=== PATIENT | female | born 1970 | race Caucasian/White ===

== ENCOUNTER 2021-07-03 10:45 | Emergency (ER) | payer OTHER, SELFPAY ==
[2021-07-03 10:46] VITALS: BP 129/78; PULSE 85; RESP 16; TEMP 37.4; O2SAT 90; BMI 29.7
--- NOTE | 2021-07-03 10:52 | NURSING ---
NO OLD EKGS
--- NOTE | 2021-07-03 11:34 | EKG12_ITS ---
Test Reason : Blood Pressure : / mmHG Vent. Rate : 080 BPM Atrial Rate : 080 BPM P-R Int : 148 ms QRS Dur : 084 ms QT Int : 364 ms P-R-T Axes : 052 001 030 degrees QTc Int : 419 ms Normal sinus rhythm Low voltage QRS (Limb Leads) Septal NC, age undetermined, cannot be excluded Confirmed by SPENCER YUN, JEROME ([id number]), supervising editor news reel KYLE MAKI ([id number]) on 07/06/2021 10:42:18 AM Referred By: FRANK Confirmed By:JEROME PALMER MD
--- NOTE | 2021-07-03 11:34 | RAD_ITS ---
INDICATION: chest pain EXAMINATION/TECHNIQUE: X-RAY - XR Chest 1 View COMPARISON: None. FINDINGS: LINES/DEVICES: External lines overlie the patient. LUNGS: Patchy airspace disease is noted in the bilateral lungs, most notable at the left lung base. Costophrenic angles appear mildly blunted. Questionable small pleural effusion on the left. No discrete pneumothorax. MEDIASTINUM AND CARDIOVASCULAR STRUCTURES: Cardiac silhouette is not enlarged. There is prominence of the pulmonary vasculature. Airway is midline. BONES AND SOFT TISSUES: Degenerative changes are noted in the osseous structures without acute fracture seen. RAD/Chest 1 View (Portable) IMPRESSION: 1. Multiple patchy airspace opacities in the bilateral lungs, most notable at the left lung base. There is also questionable small left pleural effusion. These findings are nonspecific and may represent pneumonia in the proper clinical setting. 2. Prominence of the pulmonary vasculature. This could represent pulmonary edema. Recommendations: It is recommended that follow-up radiograph of the chest are performed 6-8 weeks after treatment to document resolution. Electronically Signed: Omid Lugo MD at 16:09 EST Tel , Service support ,
[2021-07-03 11:58] VITALS: O2SAT 92
[2021-07-03 12:04] VITALS: BP 135/72; PULSE 94; RESP 18; TEMP 37.4; O2SAT 95
[2021-07-03 12:06] VITALS: O2SAT 94
[2021-07-03 12:21] LABS: Absolute Lymphocyte Count 0.82 X10^3/uL (0.83-4.51); Absolute Neutrophil Count 3.6 X10^3/uL (2.0-7.7); Basophil# 0.01 X10^3/uL; Basophil% 0.2 % (0-1); Hematocrit 40.2 % (37-47); Hemoglobin 13.3 g/dL (12.0-15.0); Lymphocyte # 0.82 X10^3/ul (0.83-4.51); Lymphocyte % 18.1 % (19-41); Mean Corp Hgb Conc 33.1 g/dL (32-36); Mean Corpuscular Hgb 28.6 pg (27.0-32.0); Mean Corpuscular Volume 86.5 fL (81-99); Mean Platelet Vol. 10.1 fl (6.2-12.0); Monocyte% 2.2 % (0-10); NRBC Flagged by Analyzer 0 % (0-5); Neutrophil # 3.58 X10^3/uL (2.7-7.7); Neutrophil % 79.3 % (47-70); POSITIVE MORPHOLOGY YES; Platelet Count 208 K/mm3 (150-450); RBC Distribution Width CV 12.7 % (11.6-14.6); RBC Distribution Width SD 40.4 fl (35.1-43.9); Red Blood Count 4.65 M/mm3 (4.2-5.4); White Blood Count 4.5 K/mm3 (4.4-11.0)
[2021-07-03 12:24] LABS: Differential Indicated SCAN CRITERIA MET
[2021-07-03 12:37] LABS: AST(SGOT) 45 U/L (15-37); Alanine Aminotransfer ALT/SGPT 40 U/L (13-56); Albumin, Serum 3.5 g/dL (3.2-5.0); Alkaline Phosphatase 64 U/L (45-117); Anion Gap 9 (5-15); BUN 10 mg/dL (7-18); BUN/Creat Ratio 11.5 RATIO (10-20); Bilirubin, Direct 0.13 mg/dL (0.00-0.30); Calcium,Total 8.3 mg/dL (8.5-10.1); Chloride 101 mmol/L (98-107); Creatinine, Serum 0.87 mg/dL (0.55-1.02); EST Glomerular Filtration Rate 73 mL/min (>60); Est Glom Filt Rate - Afr Amer 88 mL/min (>60); Estimated Creatinine Clearance 74.39 ml/min; Globulin 4.4 g/dL (2.2-4.2); Glucose 103 mg/dL (74-106); Potassium 3.9 mmol/L (3.5-5.1); Protein, Total 7.9 g/dL (6.4-8.2); Sodium Level 137 mmol/L (136-145); Troponin-I HS 8 pg/mL (3.0-54.0)
[2021-07-03] MEDS: Ondansetron 4 MG/2 ML Vial IV (12:55)
[2021-07-03 12:56] LABS: Differential Comment SCANNED
--- NOTE | 2021-07-03 14:15 | EDS_ITS ---
HPI HPI - URI History of Present Illness Chief Complaint: Shortness of Breath Narrative Narrative: 50-year-old female presenting with weakness, body aches, chills. She does have COVID-19. She had at home test at home. She has been sick for about 7 days. Patient denies any chest pain. She denies vomiting but admits to nausea. She states she is already had her primary care set her up for the monoclonal antibodies on Sunday. Impression: 1. COVID-19 pneumonitis ROS ROS ED Constitutional Constitutional ED: Reports chills and fever(s) Eyes Eyes: Denies blurry vision or diplopia ENT ENT ED: Denies rhinorrhea or sore throat Cardiovascular Cardiovascular: Denies chest pain or palpitations Respiratory/Chest Respiratory/Chest: Reports cough and dyspnea Gastrointestinal Gastrointestinal: Denies abdominal pain, nausea or vomiting Genitourinary Genitourinary ED: Denies dysuria or hematuria Musculoskeletal Musculoskeletal: Reports myalgias; Denies arthralgias Integumentary Denies Abrasions or rash Neurologic Neurologic: Reports headache(s); Denies paresthesias or weakness PFSH PFSH Medical History Arrhythmia Dermoid tumor Home Medications Aspir-81 81 mg PO/SL DAILY 07/03/21 [History Last Taken Unknown] metoprolol succinate 12.5 mg PO DAILY 07/03/21 [History Last Taken Unknown] Allergy/AdvReac Type Severity Reaction Status Date / Time amoxicillin [From Augmentin] Allergy Rash Verified 07/03/21 10:49 clavulanic acid Allergy Rash Verified 07/03/21 10:49 [From Augmentin] Surgical History Previous back surgery Status post patent foramen ovale closure Social History Smoking Status: Never smoker EXAM Physical Exam Const Vital Signs: 07/03/21 10:46 07/03/21 11:58 07/03/21 12:04 Temperature 99.3 F H 99.4 F H Temperature Source Temporal Temporal Pulse Rate 85 94 Respiratory Rate 16 18 Respiratory Effort Normal Respiratory Depth Normal Respiratory Pattern Normal Blood Pressure 129/78 H 135/72 H Blood Pressure Mean 95 93 Pulse Ox 90 95 Oxygen Delivery Method Room Air Room Air Room Air 07/03/21 12:06 Temperature Temperature Source Pulse Rate Respiratory Rate Respiratory Effort Respiratory Depth Respiratory Pattern Blood Pressure Blood Pressure Mean Pulse Ox 94 Oxygen Delivery Method Room Air Positive well nourished General Appearance ED: NAD HEENT normocephalic and atraumatic Neck supple and no meningeal signs Resp normal respiratory effort and clear to auscultation bilaterally Cardio Rate: regular rate Rhythm: regular rhythm Extremity normal to inspection General Extremety ED: Negative for cyanosis General Extremity: Negative for cyanosis Neuro oriented x3 and CN's II-XII intact bilaterally Sensorium / Orientation: alert Psych mental status grossly normal MDM MDM MDM Narrative Medical decision making narrative: EKG was performed and is sinus rhythm at 80 bpm without sign of ischemic change. Chest x-ray on my interpretation shows bilateral pulmonary infiltrates. CBC is unremarkable except for lymphopenia. CMP is normal with exception of an elevated AST at 45. High-sensitivity troponin is 8 and the patient is denying any chest pain. Patient has maintained O2 sats at 94% throughout her stay in the ER. I feel comfortable at this point discharging home to follow-up for the monoclonal antibodies. Patient is given return precautions. Lab Data Attestation: I reviewed the patient's lab results. Labs: Laboratory Results - last 24 hr 07/03/21 07/03/21 12:10 12:10 WBC 4.5 RBC 4.65 Hgb 13.3 Hct 40.2 MCV 86.5 MCH 28.6 MCHC 33.1 RDW Std Deviation 40.4 RDW Coeff of Thania 12.7 Plt Count 208 MPV 10.1 Immature Gran % (Auto) 0.200 Neut % (Auto) 79.3 H Lymph % (Auto) 18.1 L [place] % (Auto) 2.2 Eos % (Auto) 0.0 Baso % (Auto) 0.2 Absolute Neuts (auto) 3.6 Absolute Lymphs (auto) 0.82 L Nucleated RBC % 0 Differential Comment SCANNED Sodium 137 Potassium 3.9 Chloride 101 Carbon Dioxide 27.0 Anion Gap 9 BUN 10 Creatinine 0.87 Estim Creat Clear Calc 74.39 Est GFR (MDRD) Af Amer 88 Est GFR (MDRD) Non-Af 73 BUN/Creatinine Ratio 11.5 Glucose 103 Calcium 8.3 L Total Bilirubin 0.40 Direct Bilirubin 0.13 AST 45 H ALT 40 Alkaline Phosphatase 64 Troponin I High Sens 8 Total Protein 7.9 Albumin 3.5 Globulin 4.4 H Discharge Plan Triage Chief Complaint: Shortness of Breath ED Provider: Aba Hdez Dx/Rx/DC Orders Instructions: Coronavirus Disease 2019 (COVID-19): Caring for Yourself or Others Prescriptions: No Action Aspir-81 81 mg PO/SL DAILY RF: 0 metoprolol succinate 25 mg tablet extended release 24 hr 12.5 mg PO DAILY RF: 0 Other Ambulatory Orders: COVID Outpatient Monoclonal Antibody Referral (Routine) Timeframe: 1 Day Facility: [facility] - Location: [facility] Ordered By: Dr. Aba Hdez Primary Care Provider: Mitch Cabral Referrals: Mitch Cabral, [Primary Care Provider] - Disposition Disposition: Home, Self Care
[2021-07-03 14:37] VITALS: BP 136/86; PULSE 78; RESP 16; O2SAT 93
== END 2021-07-03 14:41 | disposition home or self-care (01) ==
PROVIDERS: Emergency Provider Student in an Organized Health Care Education/Training Program; PCP Family Medicine
DX: U07.1 COVID-19 (principal); J12.82 Pneumonia due to coronavirus disease 2019; J81.1 Chronic pulmonary edema; Z79.899 Other long term (current) drug therapy; Z87.74 Personal history of (corrected) congenital malformations of heart and circulatory system
CPT/HCPCS: 71045; 80048; 80076; 84484; 85025; 87635; 93005; 96374; 99284; U0005; J2405; U0003

== ENCOUNTER 2021-07-05 14:05 | Inpatient (IN) | payer OTHER, SELFPAY ==
[2021-07-05] VITALS (14 sets, daily range): BP systolic 113–136; BP diastolic 58–84; PULSE 84–113; RESP 18–24; TEMP 37.2–38.3; O2SAT 79–95; BMI 29.7; BMI 30.1
--- NOTE | 2021-07-05 14:08 | RAD_ITS ---
STUDY: X-RAY CHEST REASON FOR EXAM: Female, 50 years old. SOB TECHNIQUE: Single AP portable view of the chest. COMPARISON: Comparison is made with prior study dated 07/03/2021. FINDINGS: Since prior study, there has been a progression in the bilateral pulmonary infiltrates. There is no demonstrated pleural abnormality. Normal size heart. Normal mediastinum and frederick. Normal visualized pulmonary arteries. Normal visualized aortic arch and descending thoracic aorta. Normal visualized thoracic spine. Normal visualized ribs, clavicles, and shoulders. There is no demonstrated abnormality of the visualized soft tissue structures of the upper abdomen. RAD/Chest 1 View (Portable) IMPRESSION: Progressive bilateral pulmonary infiltrates in the preferential peripheral distribution. Pneumonitis associated with Covid should be ruled out. Electronically Signed: Frederick Campos MD at 15:22 EST , Service support ,
--- NOTE | 2021-07-05 18:07 | EKG12_ITS ---
Test Reason : DYSRHYTHMIA Blood Pressure : / mmHG Vent. Rate : 089 BPM Atrial Rate : 089 BPM P-R Int : 146 ms QRS Dur : 088 ms QT Int : 342 ms P-R-T Axes : 055 -07 043 degrees QTc Int : 416 ms Normal sinus rhythm Normal ECG Confirmed by ART MARTINEZ MD ([id number]), fashion editor SUNI CHA ([id number]) on 07/06/2021 1:11:41 PM Also confirmed by ART MARTINEZ MD ([id number]), fashion editor KYLE MAKI ([id number]) on 07/06/2021 1:24:04 PM Referred By: FRANKY KEENE Confirmed By:ART MARTINEZ MD
--- NOTE | 2021-07-05 18:10 | EDS_ITS ---
HPI History of Present Illness Chief Complaint: Shortness of Breath Informant: patient Narrative Narrative: Presents for increasing dyspnea and hypoxia today after returning from monoclonal antibody treatment up at [facility]. 8 days into symptoms. Reports fevers myalgias cough, diarrhea at least twice a day. Nonbloody. Loss of taste and smell. Decreased appetite. Nonvaccinated. Unclear on any exposures. No infections in the past. No history of COPD or asthma. No tobacco history. Reports pulse ox has been 91-92% and was at that level when she received the treatment earlier today. States after returning home felt more fatigued and more short of breath home pulse ox was 84% therefore came for evaluation. Fevers of 10 2-1 03. Status post Motrin 1230 just less than 6 hours after my evaluation. She has been alternating this with Tylenol. Tolerating oral fluids. Noted some chest discomfort with tightness. Prior similar symptoms: No PFSH PFSH Medical History Arrhythmia Dermoid tumor Home Medications Aspir-81 81 mg PO/SL DAILY 07/03/21 [History Last Taken 07/04/21] metoprolol succinate 12.5 mg PO DAILY 07/03/21 [History Last Taken 07/05/21] Allergy/AdvReac Type Severity Reaction Status Date / Time amoxicillin [From Augmentin] Allergy Rash Verified 07/05/21 14:06 clavulanic acid Allergy Rash Verified 07/05/21 14:06 [From Augmentin] Surgical History Previous back surgery Status post patent foramen ovale closure Social History Smoking Status: Never smoker ROS ROS ED Constitutional Constitutional ED: Reports fever(s); Denies chills or sweats Eyes Eyes: Denies change in vision ENT ENT ED: Denies dysphagia or sore throat Cardiovascular Cardiovascular: Reports chest pain; Denies leg edema, palpitations or racing heartbeat Respiratory/Chest Respiratory/Chest: Reports cough, dyspnea and dyspnea on exertion Gastrointestinal Gastrointestinal: Reports diarrhea; Denies abdominal pain, nausea or vomiting Genitourinary Genitourinary ED: Denies dysuria, hematuria or urinary frequency Musculoskeletal Musculoskeletal: Denies back pain, extremity pain or neck pain Integumentary Denies rash or wounds Neurologic Neurologic: Denies headache(s), paresthesias or weakness EXAM Physical Exam Const Vital Signs: 07/05/21 14:06 07/05/21 14:10 07/05/21 17:08 Temperature 99.2 F H Temperature Source Temporal Pulse Rate 86 94 Respiratory Rate 18 Respiratory Effort Respiratory Pattern Blood Pressure 135/63 H 136/72 H Blood Pressure Mean 87 93 Pulse Ox 84 90 Oxygen Delivery Method Room Air Nasal Cannula Oxygen Flow Rate (L/min) 3 07/05/21 17:33 07/05/21 18:28 07/05/21 18:39 Temperature 100.9 F H Temperature Source Oral Pulse Rate 108 H 107 H Respiratory Rate 24 H 24 H Respiratory Effort Short of Breath Respiratory Pattern Tachypnea Tachypnea Blood Pressure 136/72 H Blood Pressure Mean 93 Pulse Ox 89 92 Oxygen Delivery Method Nasal Cannula Nasal Cannula Oxygen Flow Rate (L/min) 2 4 07/05/21 19:00 07/05/21 20:02 07/05/21 20:10 Temperature 100 F H 99.1 F Temperature Source Oral Temporal Pulse Rate 101 H 106 H 113 H Respiratory Rate 21 H 20 H 22 H Respiratory Effort Respiratory Pattern Blood Pressure 122/59 H 113/84 H Blood Pressure Mean 80 93 Pulse Ox 92 93 79 Oxygen Delivery Method Nasal Cannula Nasal Cannula Nasal Cannula Oxygen Flow Rate (L/min) 4 5 4 Positive well nourished and well developed Constitutional Narrative: Currently 4 L nasal cannula, no respiratory distress. General Appearance ED: well developed and NAD HEENT Reports dry mucous membranes normocephalic and atraumatic Mouth ED: Yes dry mucous membranes Mouth: dry mucous membranes Eyes PERRL, EOMs intact bilaterally and conjunctivae normal General Eye ED: Yes normal appearance of both eyes Neck no lymphadenopathy and supple General: Negative for tenderness Chest Wall Chest: Negative for tenderness Resp normal respiratory effort and normal air movement Effort and Inspection: symmetric chest movement; Negative for respiratory distress Cardio regular rate, regular rhythm and no murmurs Peripheral Pulses: pulses 2+ throughout GI normal to inspection, nondistended, normoactive bowel sounds and non-tender Palpation: Negative for guarding or rebound tenderness present Back/Spine no CVA tenderness and no thoracic nor lumbar tenderness Extremity normal to inspection General Extremety ED: Negative for edema or tenderness General Extremity: Negative for edema Neuro oriented x3 and no sensory deficits noted Sensorium / Orientation: awake and alert Skin no rashes or lesions noted and no wounds MDM MDM MDM Narrative Medical decision making narrative: Patient maintained on 4 L initially is 92% on room air. She did feel warm and temperature went up to 100 she was given Tylenol. Labs white count 9.9 with 12.6. Lymphopenia noted. Sodium 133 potassium 4.1 creatinine 0.92. Troponin normal. Chest x-ray consistent with bilateral pneumonia with her Covid diagnosis. 2000: Reevaluation during conversation pulse ox went down to 88% on her 4 L. I did not attempt to ambulate. She was turned up to 5 L nasal cannula. She reported increasing dyspnea prior to turn up her oxygen. With her hypoxemia I spoke with hospitalist Dr. Posey for admission for further management. Lab Data Attestation: I reviewed the patient's lab results. Labs: Laboratory Results - last 24 hr 07/05/21 07/05/21 18:37 18:37 WBC 9.9 RBC 4.42 Hgb 12.6 Hct 38.0 MCV 86.0 MCH 28.5 MCHC 33.2 RDW Std Deviation 40.9 RDW Coeff of Thania 13.0 Plt Count 334 MPV 9.8 Immature Gran % (Auto) 1.100 H Neut % (Auto) 88.9 H Lymph % (Auto) 8.2 L [place] % (Auto) 1.6 Eos % (Auto) 0.0 Baso % (Auto) 0.2 Absolute Neuts (auto) 8.8 H Absolute Lymphs (auto) 0.81 L Nucleated RBC % 0 Differential Comment SCANNED Sodium 133 L Potassium 4.1 Chloride 100 Carbon Dioxide 27.0 Anion Gap 6 BUN 13 Creatinine 0.92 Estim Creat Clear Calc 70.35 Est GFR (MDRD) Af Amer 83 Est GFR (MDRD) Non-Af 69 BUN/Creatinine Ratio 14.2 Glucose 94 Calcium 8.9 Magnesium 2.3 Total Bilirubin 0.60 AST 87 H ALT 46 Alkaline Phosphatase 61 Troponin I High Sens 6 Total Protein 7.9 Albumin 2.8 L Globulin 5.1 H Albumin/Globulin Ratio 0.5 L Radiography Chest X-Ray - ED: 1 View, Read by ED Physician and Read by Radiologist Diagnostic Testing: Bilateral pulmonary infiltrates. EKG Initial EKG: Attestation: I personally reviewed and interpreted this EKG as follows: Comments: Sinus rate of [address] changes. T wave flattening in leads III and aVF. Discharge Plan Dx/Rx/DC Orders Clinical Impression: Pneumonia due to 2019-nCoV, Hypoxemia, Acute hyponatremia Disposition Disposition: Acute Care Hospital [facility] Discharge Date/Time: 07/05/21 20:44
[2021-07-05] MEDS: Acetaminophen 500 MG Tablet 1000 MG PO (18:28)
[2021-07-05] MEDS: Albuterol 2.5 MG/3 ML VIAL.NEB. INHALATION (18:28)
[2021-07-05] MEDS: dexAMETHasone 4 MG Tablet 6 MG PO (18:28)
[2021-07-05 18:53] LABS: Absolute Lymphocyte Count 0.81 X10^3/uL (0.83-4.51); Absolute Neutrophil Count 8.8 X10^3/uL (2.0-7.7); Basophil# 0.02 X10^3/uL; Basophil% 0.2 % (0-1); Hemoglobin 12.6 g/dL (12.0-15.0); Lymphocyte # 0.81 X10^3/ul (0.83-4.51); Lymphocyte % 8.2 % (19-41); Mean Corp Hgb Conc 33.2 g/dL (32-36); Mean Corpuscular Hgb 28.5 pg (27.0-32.0); Mean Platelet Vol. 9.8 fl (6.2-12.0); Monocyte# 0.16 X10^3/uL; Monocyte% 1.6 % (0-10); NRBC Flagged by Analyzer 0 % (0-5); Neutrophil # 8.83 X10^3/uL (2.7-7.7); Neutrophil % 88.9 % (47-70); POSITIVE MORPHOLOGY YES; Platelet Count 334 K/mm3 (150-450); RBC Distribution Width SD 40.9 fl (35.1-43.9); Red Blood Count 4.42 M/mm3 (4.2-5.4); White Blood Count 9.9 K/mm3 (4.4-11.0)
[2021-07-05 18:54] LABS: Differential Indicated SCAN CRITERIA MET
[2021-07-05 19:11] LABS: ALB/GLOB Ratio 0.5 RATIO (0.9-2.4); AST(SGOT) 87 U/L (15-37); Alanine Aminotransfer ALT/SGPT 46 U/L (13-56); Albumin, Serum 2.8 g/dL (3.2-5.0); Alkaline Phosphatase 61 U/L (45-117); Anion Gap 6 (5-15); BUN 13 mg/dL (7-18); BUN/Creat Ratio 14.2 RATIO (10-20); Calcium,Total 8.9 mg/dL (8.5-10.1); Chloride 100 mmol/L (98-107); Creatinine, Serum 0.92 mg/dL (0.55-1.02); EST Glomerular Filtration Rate 69 mL/min (>60); Est Glom Filt Rate - Afr Amer 83 mL/min (>60); Estimated Creatinine Clearance 70.35 ml/min; Globulin 5.1 g/dL (2.2-4.2); Glucose 94 mg/dL (74-106); Magnesium 2.3 mg/dL (1.6-2.6); Potassium 4.1 mmol/L (3.5-5.1); Protein, Total 7.9 g/dL (6.4-8.2); Sodium Level 133 mmol/L (136-145); Troponin-I HS 6 pg/mL (3.0-54.0)
[2021-07-05 19:48] LABS: Differential Comment SCANNED
--- NOTE | 2021-07-05 21:20 | PCM.HP.STD ---
HPI - General General Date of Admission: 07/05/21 Date of Service: 07/05/21 Chief Complaint: Shortness of breath, COVID-19 infection HPI Narrative MARY GILLESPIE, is a 50 F who presents to the emergency room at [facility] for evaluation of increasing shortness of breath, she was diagnosed with Covid 19 infection which was diagnosed 8 days ago, she received monoclonal antibodies today but became short of breath and had increased fatigue when she returned home. She noted her pulse ox at home to be 84% on room air. Labs obtained on the patient showed a normal white blood cell count, CMP was unremarkable except for an AST of 87. Chest x-ray showed bilateral pulmonary infiltrates. Patient required 4 L of oxygen to maintain her pulse ox at 92%. Patient will be admitted to [place] [id number] for COVID-19 pneumonia, she was placed on IV Decadron and will receive remdesivir. I explained to her that if her respiratory status worsened markedly she would be a candidate to receive baricitinib. FORMERLY [facility], [facility] Medical History Arrhythmia Dermoid tumor Home Medications Aspir-81 81 mg PO/SL DAILY 07/03/21 [History Last Taken 07/04/21] metoprolol succinate 12.5 mg PO DAILY 07/03/21 [History Last Taken 07/05/21] Allergy/AdvReac Type Severity Reaction Status Date / Time amoxicillin [From Augmentin] Allergy Rash Verified 07/05/21 14:06 clavulanic acid Allergy Rash Verified 07/05/21 14:06 [From Augmentin] Surgical History Previous back surgery Status post patent foramen ovale closure Social History Smoking Status: Never smoker ROS Constitutional Constitutional: Reports chills, fatigue, fever(s), malaise and weakness; Denies anorexia, change in weight or night sweats Eyes Eyes: Denies blurry vision, change in vision, discharge from eye(s) or eye pain Cardiovascular Cardiovascular: Denies chest pain, claudication, edema or palpitations Respiratory/Chest Respiratory/Chest: Reports cough, shortness of breath at rest and shortness of breath with exertion; Denies hemoptysis Gastrointestinal Gastrointestinal: Denies abdominal pain, constipation, diarrhea, hematemesis, hematochezia, melena, nausea or vomiting Genitourinary Genitourinary: Denies dysuria, hematuria, urinary frequency, urinary hesitancy, urinary incontinence or urinary urgency Musculoskeletal Musculoskeletal: Denies back pain, joint pain, joint stiffness, joint swelling, myalgias or neck pain Neurologic Neurologic: Denies abnormal gait, abnormal speech, dizziness, focal weakness, headache(s), loss of vision, numbness, other visual disturbances, paresthesias, syncope or tingling Psychiatric Psychiatric: Denies anxiety, cognitive impairment, depression, irritability, mood swings or suicidal ideation Endocrine Endocrinology: Denies change in body appearance, cold intolerance, excessive sweating, heat intolerance, polydipsia or polyuria Hematologic/Lymphatic Hematologic/Lymphatic: Denies none, anemia, easy bleeding, easy bruising or lymphadenopathy Allergic/Immunologic Allergic/Immunologic: Denies rhinitis, urticaria, eczemia or asthma Vital Signs Vital Signs Vital Signs: 07/05/21 14:06 07/05/21 14:10 07/05/21 17:08 Temperature 99.2 F H Temperature Source Temporal Pulse Rate 86 94 Respiratory Rate 18 Respiratory Effort Respiratory Pattern Blood Pressure 135/63 H 136/72 H Blood Pressure Mean 87 93 Pulse Ox 84 90 Oxygen Delivery Method Room Air Nasal Cannula Oxygen Flow Rate (L/min) 3 07/05/21 17:33 07/05/21 18:28 07/05/21 18:39 Temperature 100.9 F H Temperature Source Oral Pulse Rate 108 H 107 H Respiratory Rate 24 H 24 H Respiratory Effort Short of Breath Respiratory Pattern Tachypnea Tachypnea Blood Pressure 136/72 H Blood Pressure Mean 93 Pulse Ox 89 92 Oxygen Delivery Method Nasal Cannula Nasal Cannula Oxygen Flow Rate (L/min) 2 4 07/05/21 19:00 07/05/21 20:02 07/05/21 20:10 Temperature 100 F H 99.1 F Temperature Source Oral Temporal Pulse Rate 101 H 106 H 113 H Respiratory Rate 21 H 20 H 22 H Respiratory Effort Respiratory Pattern Blood Pressure 122/59 H 113/84 H Blood Pressure Mean 80 93 Pulse Ox 92 93 79 Oxygen Delivery Method Nasal Cannula Nasal Cannula Nasal Cannula Oxygen Flow Rate (L/min) 4 5 4 Weight Weight: 87.3 kg Body Mass Index (BMI) 30.1 Physical Exam Const alert, oriented x3, no apparent distress, healthy appearing and well nourished General Appearance: cooperative, well kempt and well developed Orientation / Consciousness: awake, oriented to person, oriented to place and oriented to time HEENT normocephalic, head/scalp atraumatic, hearing grossly normal bilaterally and moist oral mucous membranes Eyes PERRL, EOMs intact bilaterally and conjunctivae normal Neck nuchal rigidity, supple, no JVD, thyroid normal and no carotid bruits General: trachea midline Resp normal respiratory effort, no retractions, no use of accessory muscles and clear to auscultation bilaterally Auscultation: Negative for rales, rhonchi or wheezes Cardio regular rate, regular rhythm, S1 normal heart sound, S2 normal heart sound, no murmurs, no rub and no gallops GI normal to inspection, nondistended, normoactive bowel sounds, soft to palpation, non-tender and non-distended Extremity normal to inspection and no clubbing, cyanosis or edema Skin no rashes or lesions noted General Skin Exam: no breakdown Neuro oriented x3, CN's II-XII intact bilaterally, no focal motor deficits and no sensory deficits noted Sensorium / Orientation: awake and alert Speech: speech normal Psych thought process normal and affect normal Results Lab / Micro Data Result Diagrams: 07/05/21 18:37 07/05/21 18:37 Labs: Laboratory Results - last 24 hr 07/05/21 18:37: WBC 9.9, RBC 4.42, Hgb 12.6, Hct 38.0, MCV 86.0, MCH 28.5, MCHC 33.2, RDW Std Deviation 40.9, RDW Coeff of Thania 13.0, Plt Count 334, MPV 9.8, Immature Gran % (Auto) 1.100 H, Neut % (Auto) 88.9 H, Lymph % (Auto) 8.2 L, [place] % (Auto) 1.6, Eos % (Auto) 0.0, Baso % (Auto) 0.2, Absolute Neuts (auto) 8.8 H, Absolute Lymphs (auto) 0.81 L, Nucleated RBC % 0, Differential Comment SCANNED 07/05/21 18:37: Sodium 133 L, Potassium 4.1, Chloride 100, Carbon Dioxide 27.0, Anion Gap 6, BUN 13, Creatinine 0.92, Estim Creat Clear Calc 70.35, Est GFR (MDRD) Af Amer 83, Est GFR (MDRD) Non-Af 69, BUN/Creatinine Ratio 14.2, Glucose 94, Calcium 8.9, Magnesium 2.3, Total Bilirubin 0.60, AST 87 H, ALT 46, Alkaline Phosphatase 61, Troponin I High Sens 6, Total Protein 7.9, Albumin 2.8 L, Globulin 5.1 H, Albumin/Globulin Ratio 0.5 L Assessment & Plan Assessment/Plan (1) Pneumonia due to 2019-nCoV: PLAN: 1. COVID-19 pneumonia-patient will be admitted to [facility], she will receive IV Decadron and IV remdesivir, if respiratory status worsens, she may need to be seen by infectious diseases for institution of baricitinib treatment. Patient understands this. #2 acute hypoxic respiratory failure secondary to COVID-19 pneumonia-pulse ox will be monitored Charges/Coding Visit Charges Inpatient E&M: 22070 Init Hosp L3
[2021-07-05] MEDS: Enoxaparin 40 MG/0.4 ML Syringe SC (22:00)
--- NOTE | 2021-07-05 23:06 | PCS.PANDOC ---
PANDEMIC DOCUMENTATION INITIATED: Date: 03/07/2021 Time: 1900 Emergency documentation initiated 07/05/21 @ 2049
[2021-07-06] VITALS (10 sets, daily range): BP systolic 100–118; BP diastolic 59–68; PULSE 75–90; RESP 16–18; TEMP 36.7–38.1; O2SAT 89–96
[2021-07-06 07:19] LABS: Absolute Lymphocyte Count 0.84 X10^3/uL (0.83-4.51); Absolute Neutrophil Count 9.5 X10^3/uL (2.0-7.7); Basophil# 0.01 X10^3/uL; Basophil% 0.1 % (0-1); Hematocrit 35.1 % (37-47); Lymphocyte # 0.84 X10^3/ul (0.83-4.51); Lymphocyte % 7.9 % (19-41); Mean Corp Hgb Conc 34.2 g/dL (32-36); Mean Corpuscular Hgb 29.5 pg (27.0-32.0); Mean Corpuscular Volume 86.2 fL (81-99); Mean Platelet Vol. 9.9 fl (6.2-12.0); Monocyte# 0.18 X10^3/uL; Monocyte% 1.7 % (0-10); NRBC Flagged by Analyzer 0 % (0-5); Neutrophil # 9.47 X10^3/uL (2.7-7.7); Neutrophil % 89.5 % (47-70); POSITIVE MORPHOLOGY YES; Platelet Count 351 K/mm3 (150-450); RBC Distribution Width CV 13.2 % (11.6-14.6); Red Blood Count 4.07 M/mm3 (4.2-5.4); White Blood Count 10.6 K/mm3 (4.4-11.0)
[2021-07-06 07:25] LABS: Differential Indicated SCAN CRITERIA MET
--- NOTE | 2021-07-06 07:27 | PCM.PN.HOSP ---
Subjective Subjective Patient is a 50-year-old lady unvaccinated against COVID-19 pneumonia presented with progressive shortness of breath Objective Data Objective Data Vital Signs: Vital Signs Temp Pulse Resp BP Pulse Ox 98.1 F 84 18 111/60 94 07/06/21 05:00 07/06/21 05:00 07/06/21 05:00 07/06/21 05:00 07/06/21 05:00 Oxygen Flow Rate (L/min) 15 Oxygen Delivery Method High Flow Weight: 87.3 kg Body Mass Index (BMI) 30.1 Intake & Output: Intake and Output for Last 24 Hours 07/04/21 07/05/21 07/06/21 23:59 23:59 23:59 Intake Total 500 / 500 650 / 650 Balance 500 / 500 650 / 650 Lab / Micro Data Result Diagrams: 07/06/21 06:20 07/06/21 06:20 Labs: Laboratory Results - last 24 hr 07/05/21 18:37: WBC 9.9, RBC 4.42, Hgb 12.6, Hct 38.0, MCV 86.0, MCH 28.5, MCHC 33.2, RDW Std Deviation 40.9, RDW Coeff of Thania 13.0, Plt Count 334, MPV 9.8, Immature Gran % (Auto) 1.100 H, Neut % (Auto) 88.9 H, Lymph % (Auto) 8.2 L, Stark % (Auto) 1.6, Eos % (Auto) 0.0, Baso % (Auto) 0.2, Absolute Neuts (auto) 8.8 H, Absolute Lymphs (auto) 0.81 L, Nucleated RBC % 0, Differential Comment SCANNED 07/05/21 18:37: Sodium 133 L, Potassium 4.1, Chloride 100, Carbon Dioxide 27.0, Anion Gap 6, BUN 13, Creatinine 0.92, Estim Creat Clear Calc 70.35, Est GFR (MDRD) Af Amer 83, Est GFR (MDRD) Non-Af 69, BUN/Creatinine Ratio 14.2, Glucose 94, Calcium 8.9, Magnesium 2.3, Total Bilirubin 0.60, AST 87 H, ALT 46, Alkaline Phosphatase 61, Troponin I High Sens 6, Total Protein 7.9, Albumin 2.8 L, Globulin 5.1 H, Albumin/Globulin Ratio 0.5 L 07/06/21 06:20: WBC 10.6, RBC 4.07 L, Hgb 12.0, Hct 35.1 L, MCV 86.2, MCH 29.5, MCHC 34.2, RDW Std Deviation 42.0, RDW Coeff of Thania 13.2, Plt Count 351, MPV 9.9, Immature Gran % (Auto) 0.800, Neut % (Auto) 89.5 H, Lymph % (Auto) 7.9 L, Stark % (Auto) 1.7, Eos % (Auto) 0.0, Baso % (Auto) 0.1, Absolute Neuts (auto) 9.5 H, Absolute Lymphs (auto) 0.84, Nucleated RBC % 0 Radiography Diagnostic Testing: Radiology Impression Chest X-Ray 07/05/21 14:08 IMPRESSION: Progressive bilateral pulmonary infiltrates in the preferential peripheral distribution. Pneumonitis associated with Covid should be ruled out. Electronically Signed: Frederick Campos MD at 15:22 EST , Service support , Physical Exam Narrative GENERAL: Dyspneic at rest HEENT: Atraumatic; EYES; Anicteric, Normal Conjunctiva NECK; supple, normal thyroid, RESPIRATORY: Diminished to auscultation CARDIOVASCULAR: Regular S1 S2, GI: soft, normoactive bowel sounds, : No Renal angle tenderness; EXTREMITIES: No edema, no clubbing, MUSCULOSKELETAL: no muscle waisting NEURO: Awake; no lateralizing signs. SKIN: No Rash PSYCH; Flat affect Assessment & Plan Assessment/Plan (1) Pneumonia due to 2019-nCoV: PLAN: Patient is a 50-year-old lady unvaccinated against COVID-19 pneumonia presented with progressive shortness of breath 1. Acute hypoxic respiratory failure ?Secondary to COVID-19 pneumonia patient on supplemental oxygen 2. COVID-19 pneumonia ?Patient was started on Decadron and remdesivir in addition to supplemental oxygen as discussed above. In view of patient worsening respiratory status consult was placed to pulmonary medicine as well as infectious disease for consideration for initiation of baricitinib 3. Arrhythmia?? SVT As patient is on beta-blockers 4. DVT prophylaxis ?On Lovenox 1. COVID-19 pneumonia-patient will be admitted to [facility] [place], she will receive IV Decadron and IV remdesivir, if respiratory status worsens, she may need to be seen by infectious diseases for institution of baricitinib treatment. Patient understands this. #2 acute hypoxic respiratory failure secondary to COVID-19 pneumonia-pulse ox will be monitored Charges/Coding Visit Charges Inpatient E&M: 17902 Subs Hosp L3
[2021-07-06 07:49] LABS: ALB/GLOB Ratio 0.5 RATIO (0.9-2.4); AST(SGOT) 78 U/L (15-37); Alanine Aminotransfer ALT/SGPT 51 U/L (13-56); Albumin, Serum 2.4 g/dL (3.2-5.0); Alkaline Phosphatase 68 U/L (45-117); Anion Gap 10 (5-15); BUN 11 mg/dL (7-18); BUN/Creat Ratio 15.4 RATIO (10-20); Calcium,Total 8.7 mg/dL (8.5-10.1); Chloride 105 mmol/L (98-107); Creatinine, Serum 0.72 mg/dL (0.55-1.02); EST Glomerular Filtration Rate 91 mL/min (>60); Est Glom Filt Rate - Afr Amer 110 mL/min (>60); Estimated Creatinine Clearance 89.89 ml/min; Globulin 4.6 g/dL (2.2-4.2); Glucose 128 mg/dL (74-106); Sodium Level 140 mmol/L (136-145)
[2021-07-06 08:15] LABS: Reactive Lymphocyte RARE
--- NOTE | 2021-07-06 09:27 | PCS.PANDOC ---
PANDEMIC DOCUMENTATION INITIATED: Date: 03/07/2021 Time: 190
[2021-07-06] MEDS: Enoxaparin 40 MG/0.4 ML Syringe SC (09:42)
[2021-07-06] MEDS: dexAMETHasone 4 MG Tablet 6 MG PO (09:42)
[2021-07-06] MEDS: Aspirin 81 MG TAB.CHEW PO (09:43)
[2021-07-06] MEDS: Metoprolol(XL)Succ 25 MG Tablet 12.5 MG PO (09:43)
[2021-07-06] MEDS: Acetaminophen 325 MG Tablet 650 MG PO ×3 (09:50→23:01)
[2021-07-06 10:28] LABS: Procalcitonin 0.14 ng/mL (0.00-0.09)
[2021-07-06 10:33] LABS: CPK Total, Creatine Kinase 212 U/L (26-192); LDH 832 U/L (84-246)
[2021-07-06 10:52] LABS: Lactic Acid 1.4 mmol/L (0.4-1.9)
[2021-07-06 10:53] LABS: Fibrinogen 873 mg/dl (203-444)
--- NOTE | 2021-07-06 11:00 | CASEMGMT ---
JACOBY GLASS Assessment: Face to Face with pt for initial transition planning/care coordination assessment. JACOBY GLASS introduced self and role at [facility], pt voices understanding and consents to assessment. Pt is A/O x4 and answers all questions appropriately at this time. Pt sitting up in chair with O2 on in no distress. Care providers, pharmacy, and demographics verified/updated. Admitting Dx: COVID 19 PNA PCP:Misha Specialists: Pt sees cardiology from [facility] Preferred Pharmacy: [facility] Retail Insurance: MMO Prescription Benefit: yes LW/HPOA: Pt states she has a LW/DPOA and her DPOA is her Shaan Garcia. She is aware that this is not on file at [facility] and she may bring in to be scanned into the chart. LNOK: Shaan Garcia, Living Arrangements: Pt lives with in a two story house with 3 steps to enter with a rail. Pt reports she is I in ADL's and denies concerns at home. Transportation: Pt drives self and denies concerns with transportation. DME/HHC/SNF: Pt denies having any DME in the home, prior HHC or SNF stays. Pt states her does not have COVID. She was first tested at home, then at [facility]. Pt states she can quarantine from her by using separate bedrooms and bathroom and has already been doing so. Pt has family who can provide her with groceries and supplies. Discussed local in network DME companies should pt need home O2 at dc. Pt does not have preference on company used. Pt states no concerns with going home at time of dc. Pt states no further concerns/needs. CM to follow. Advised pt to ask CM if any further question/concerns/needs arise, voices understanding. Pt Goal: Home Plan: Home, follow for home O2.
[2021-07-06 11:02] LABS: D-Dimer Quantitative (DVT/PE) 3.21 FEU/ug/m (0.27-0.49)
--- NOTE | 2021-07-06 11:08 | CT_ITS ---
STUDY: CTA CHEST REASON FOR EXAM: Female, 50 years old. Cough and shortness of breath. Covid positive. RADIATION DOSAGE (If Supplied By Facility): CTDIvol = ( 11.35 ) mGy, DLP = ( 488.53 ) mGycm TECHNIQUE: The examination was performed with the intravenous administration of IV 100mL Isovue-300. Post-processing of the angiographic images was performed, with multiplanar reformation and 3D reconstruction. Individualized dose optimization techniques were used for this CT. COMPARISON: None. FINDINGS: Normal enhancement of the main pulmonary artery and right and left pulmonary arteries. Normal enhancement of the bilateral peripheral pulmonary arteries. There is no demonstrated pulmonary embolism. Normal thoracic aorta and visualized great vessels. There is no demonstrated aortic dissection. Normal heart and pericardium. Normal mediastinum. Normal hilar regions. Normal visualized trachea and bronchi. The lungs are well expanded. Diffuse bilateral pulmonary infiltrates involving both upper and lower lobes and both lungs. There is a preferential peripheral distribution suggestive of pneumonitis associated with Covid. Normal pleura. Normal chest wall structures. Normal osseous structures. Normal visualized upper abdomen. CT/CTA Chest W/WO Contrast IMPRESSION: Diffuse bilateral pulmonary infiltrates as described. Pneumonitis associated with Covid should be ruled out. Electronically Signed: Frederick Campos MD at 12:11 EST , Service support ,
--- NOTE | 2021-07-06 12:09 | EX.PCM.CONCC ---
Assessment & Plan Assessment/Plan (1) Hypoxemia: (2) Pneumonia due to 2019-nCoV: PLAN: RECOMMENDATIONS: 1. Continue remdesivir and Decadron as ordered. 2. Continue prophylactic Lovenox. 3. Wean supplemental oxygen to maintain saturations at or above 90%. 4. Awake prone positioning was encouraged. 5. Diuretics can utilized as needed to maintain euvolemic state. IMPRESSIONS: 1. Acute hypoxemic respiratory failure secondary to COVID-19 pneumonia The patient presented to the hospital with worsening dyspnea and hypoxemia after having received an outpatient monoclonal antibody infusion on July 05. She is currently maintaining appropriate oxygen saturations on high flow nasal cannula. The patient has already been started on remdesivir, prophylactic Lovenox and Decadron. CTA chest was negative for PE. Continue supplemental oxygen to maintain saturations at or above 90%. Encourage incentive spirometer use and mobilize patient as tolerated. Awake prone positioning was encouraged. This note was generated with [employer] dictation software. It may contain incorrect words, spelling, and punctuation that were not noted in checking the note before signing. HPI Consult Data Date of Consult: 07/06/21 HPI Narrative Reason for Consultation: Acute hypoxemic respiratory failure secondary to COVID-19 pneumonia HPI Narrative: The patient is a 50-year-old female, with a history as outlined below, who presented to the emergency department on July 05 with worsening shortness of breath, cough, myalgias and diarrhea. The patient is unvaccinated against coronavirus. She did receive a monoclonal antibody infusion yesterday morning and was apparently maintaining appropriate oxygen saturations on room air at that time. By the time the evening hours came around, the patient was hypoxemic. Previously, the patient had been evaluated in the emergency department on July 03 with shortness of breath and subsequently tested positive for COVID-19. On presentation to the emergency department, the patient was initially noted to have a low-grade fever but was otherwise hemodynamically stable, saturating 84% on room air. Laboratory evaluation revealed no evidence of a leukocytosis. D-dimer was elevated at 3.2. Liver and renal function were within normal limits. Coronavirus PCR was positive. CTA chest showed no evidence for PE. Diffuse bilateral groundglass infiltrates were noted. The patient was subsequently placed on remdesivir, prophylactic Lovenox and Decadron. She was admitted to the medical surgical floor for further management. [facility] Medical History Arrhythmia Dermoid tumor Home Medications Aspir-81 81 mg PO/SL DAILY 07/03/21 [History Last Taken 07/04/21] metoprolol succinate 12.5 mg PO DAILY 07/03/21 [History Last Taken 07/05/21] Allergy/AdvReac Type Severity Reaction Status Date / Time amoxicillin [From Augmentin] Allergy Rash Verified 07/05/21 14:06 clavulanic acid Allergy Rash Verified 07/05/21 14:06 [From Augmentin] Surgical History Previous back surgery Status post patent foramen ovale closure Social History Smoking Status: Never smoker ROS Constitutional Constitutional: Reports body ache(s), chills, fatigue and malaise Eyes Eyes: Denies blurry vision or change in vision ENT HEENT: Denies dizziness, dysphagia or epistaxis Cardiovascular Cardiovascular: Reports dyspnea; Denies chest pain or claudication Respiratory/Chest Respiratory/Chest: Reports cough and dyspnea Gastrointestinal Gastrointestinal: Reports diarrhea; Denies abdominal pain, nausea or vomiting Genitourinary Genitourinary: Denies difficulty urinating Musculoskeletal Musculoskeletal: Denies arthralgias, back pain or joint pain Integumentary Integumentary: Denies lesions, rash or skin ulcer Neurologic Neurologic: Denies abnormal gait or abnormal speech Psychiatric Psychiatric: Denies anxiety or depression Endocrine Endocrinology: Reports fatigue Hematologic/Lymphatic Hematologic/Lymphatic: Denies easy bleeding or easy bruising Physical Exam Const alert, oriented x3 and no apparent distress General Appearance: cooperative HEENT normocephalic, head/scalp atraumatic and moist oral mucous membranes Eyes PERRL, EOMs intact bilaterally and conjunctivae normal Neck supple General: trachea midline Chest inspection of chest normal Resp normal respiratory effort Auscultation: Negative for rales, rhonchi or wheezes Cardio regular rate and regular rhythm GI normal to inspection, nondistended, normoactive bowel sounds Extremity no clubbing, cyanosis or edema Skin no rashes or lesions noted Neuro CN's II-XII intact bilaterally, moves all extremities and no focal motor deficits Psych cooperative and affect normal Lab / Micro Data Result Diagrams: 07/06/21 06:20 07/06/21 06:20 Labs: Laboratory Results - last 24 hr 07/05/21 18:37: WBC 9.9, RBC 4.42, Hgb 12.6, Hct 38.0, MCV 86.0, MCH 28.5, MCHC 33.2, RDW Std Deviation 40.9, RDW Coeff of Thania 13.0, Plt Count 334, MPV 9.8, Immature Gran % (Auto) 1.100 H, Neut % (Auto) 88.9 H, Lymph % (Auto) 8.2 L, Worth % (Auto) 1.6, Eos % (Auto) 0.0, Baso % (Auto) 0.2, Absolute Neuts (auto) 8.8 H, Absolute Lymphs (auto) 0.81 L, Nucleated RBC % 0, Differential Comment SCANNED 07/05/21 18:37: Sodium 133 L, Potassium 4.1, Chloride 100, Carbon Dioxide 27.0, Anion Gap 6, BUN 13, Creatinine 0.92, Estim Creat Clear Calc 70.35, Est GFR (MDRD) Af Amer 83, Est GFR (MDRD) Non-Af 69, BUN/Creatinine Ratio 14.2, Glucose 94, Calcium 8.9, Magnesium 2.3, Total Bilirubin 0.60, AST 87 H, ALT 46, Alkaline Phosphatase 61, Troponin I High Sens 6, Total Protein 7.9, Albumin 2.8 L, Globulin 5.1 H, Albumin/Globulin Ratio 0.5 L 07/06/21 06:20: WBC 10.6, RBC 4.07 L, Hgb 12.0, Hct 35.1 L, MCV 86.2, MCH 29.5, MCHC 34.2, RDW Std Deviation 42.0, RDW Coeff of Thania 13.2, Plt Count 351, MPV 9.9, Immature Gran % (Auto) 0.800, Neut % (Auto) 89.5 H, Lymph % (Auto) 7.9 L, Worth % (Auto) 1.7, Eos % (Auto) 0.0, Baso % (Auto) 0.1, Absolute Neuts (auto) 9.5 H, Absolute Lymphs (auto) 0.84, Nucleated RBC % 0, Reactive Lymphocytes RARE 07/06/21 06:20: Sodium 140, Potassium 4.0, Chloride 105, Carbon Dioxide 25.0, Anion Gap 10, BUN 11, Creatinine 0.72, Estim Creat Clear Calc 89.89, Est GFR (MDRD) Af Amer 110, Est GFR (MDRD) Non-Af 91, BUN/Creatinine Ratio 15.4, Glucose 128 H, Calcium 8.7, Total Bilirubin 0.40, AST 78 H, ALT 51, Alkaline Phosphatase 68, Total Protein 7.0, Albumin 2.4 L, Globulin 4.6 H, Albumin/Globulin Ratio 0.5 L 07/06/21 06:20: Lactate Dehydrogenase 832 H, Total Creatine Kinase 212 H, C-React Prot Ext Range 297.00 H 07/06/21 06:20: Procalcitonin 0.14 H 07/06/21 10:12: Fibrinogen 873 H, D-Dimer Quant (PE/DVT) 3.21 H* 07/06/21 10:12: Lactic Acid 1.4 Radiology Impression Chest X-Ray 07/05/21 14:08 IMPRESSION: Progressive bilateral pulmonary infiltrates in the preferential peripheral distribution. Pneumonitis associated with Covid should be ruled out. Electronically Signed: Frederick Campos MD at 15:22 EST , Service support , Charges/Coding Visit Charges Inpatient E&M: 94281 Init Hosp L3
--- NOTE | 2021-07-06 15:14 | CON.PCM.ID_ITS ---
Assessment & Plan Assessment/Plan (1) Pneumonia due to 2019-nCoV: PLAN: Sx started 06/27, unvaccinated. Isolate until 07/17. Recommend vaccine once out of iso. On dex and remdesivir. CRP 300. With rapidly worsening o2, reviewed EUA and risks/benefits; we agree to start baricitinib. Will follow, thank you (2) Hypoxemia: HPI Consult Data Date of Consult: 07/06/21 HPI Narrative HPI Narrative: MARY GILLESPIE, is a 50 F who presented 07/05 after monoclonal Ab infusion. Sx started 06/27. Lives with who is vaccinated, asymptomatic. Pt developed headache, fever, chills, cough, sputum, nausea, diarrhea, aches, change in taste/smell. Now on dex, remdesivir but worsening O2. Feeling better. Full ROS performed and neg except as noted above. [facility] Medical History Arrhythmia Dermoid tumor Home Medications Aspir-81 81 mg PO/SL DAILY 07/03/21 [History Last Taken 07/04/21] metoprolol succinate 12.5 mg PO DAILY 07/03/21 [History Last Taken 07/05/21] Allergy/AdvReac Type Severity Reaction Status Date / Time amoxicillin [From Augmentin] Allergy Rash Verified 07/05/21 14:06 clavulanic acid Allergy Rash Verified 07/05/21 14:06 [From Augmentin] Surgical History Previous back surgery Status post patent foramen ovale closure Social History Smoking Status: Never smoker Physical Exam Const alert, oriented x3 and no apparent distress General Appearance: cooperative Exam Limitations: no limitations HEENT normocephalic and head/scalp atraumatic Eyes PERRL and EOMs intact bilaterally Neck supple and No nodes Resp Auscultation: diminished lung sounds Cardio regular rate and regular rhythm GI normal to inspection, nondistended, normoactive bowel sounds Extremity no clubbing, cyanosis or edema Skin no rashes or lesions noted Neuro CN's II-XII intact bilaterally Lab / Micro Data Result Diagrams: 07/06/21 06:20 07/06/21 06:20 Labs: Laboratory Results - last 24 hr 07/05/21 18:37: WBC 9.9, RBC 4.42, Hgb 12.6, Hct 38.0, MCV 86.0, MCH 28.5, MCHC 33.2, RDW Std Deviation 40.9, RDW Coeff of Thania 13.0, Plt Count 334, MPV 9.8, Immature Gran % (Auto) 1.100 H, Neut % (Auto) 88.9 H, Lymph % (Auto) 8.2 L, Hendricks % (Auto) 1.6, Eos % (Auto) 0.0, Baso % (Auto) 0.2, Absolute Neuts (auto) 8.8 H, Absolute Lymphs (auto) 0.81 L, Nucleated RBC % 0, Differential Comment SCANNED 07/05/21 18:37: Sodium 133 L, Potassium 4.1, Chloride 100, Carbon Dioxide 27.0, Anion Gap 6, BUN 13, Creatinine 0.92, Estim Creat Clear Calc 70.35, Est GFR (MDRD) Af Amer 83, Est GFR (MDRD) Non-Af 69, BUN/Creatinine Ratio 14.2, Glucose 94, Calcium 8.9, Magnesium 2.3, Total Bilirubin 0.60, AST 87 H, ALT 46, Alkaline Phosphatase 61, Troponin I High Sens 6, Total Protein 7.9, Albumin 2.8 L, Globulin 5.1 H, Albumin/Globulin Ratio 0.5 L 07/06/21 06:20: WBC 10.6, RBC 4.07 L, Hgb 12.0, Hct 35.1 L, MCV 86.2, MCH 29.5, MCHC 34.2, RDW Std Deviation 42.0, RDW Coeff of Thania 13.2, Plt Count 351, MPV 9.9, Immature Gran % (Auto) 0.800, Neut % (Auto) 89.5 H, Lymph % (Auto) 7.9 L, Hendricks % (Auto) 1.7, Eos % (Auto) 0.0, Baso % (Auto) 0.1, Absolute Neuts (auto) 9.5 H, Absolute Lymphs (auto) 0.84, Nucleated RBC % 0, Reactive Lymphocytes RARE 07/06/21 06:20: Sodium 140, Potassium 4.0, Chloride 105, Carbon Dioxide 25.0, Anion Gap 10, BUN 11, Creatinine 0.72, Estim Creat Clear Calc 89.89, Est GFR (MDRD) Af Amer 110, Est GFR (MDRD) Non-Af 91, BUN/Creatinine Ratio 15.4, Glucose 128 H, Calcium 8.7, Total Bilirubin 0.40, AST 78 H, ALT 51, Alkaline Phosphatase 68, Total Protein 7.0, Albumin 2.4 L, Globulin 4.6 H, Albumin/Globulin Ratio 0.5 L 07/06/21 06:20: Lactate Dehydrogenase 832 H, Total Creatine Kinase 212 H, C- React Prot Ext Range 297.00 H 07/06/21 06:20: Procalcitonin 0.14 H 07/06/21 10:12: Fibrinogen 873 H, D-Dimer Quant (PE/DVT) 3.21 H* 07/06/21 10:12: Lactic Acid 1.4 Radiology Impression Chest X-Ray 07/05/21 14:08 IMPRESSION: Progressive bilateral pulmonary infiltrates in the preferential peripheral distribution. Pneumonitis associated with Covid should be ruled out. Electronically Signed: Frederick Campos MD at 15:22 EST , Service support , Chest CTA 07/06/21 11:08 IMPRESSION: Diffuse bilateral pulmonary infiltrates as described. Pneumonitis associated with Covid should be ruled out. Electronically Signed: Frederick Campos MD at 12:11 EST , Service support ,
[2021-07-06] MEDS: Sodium Chloride 0.65% 1 SPRAY SPRAY.BTL 2 SPRAY NASAL (21:37)
[2021-07-06] MEDS: 0.9% Saline Lock 10 ML Syringe IV (21:38)
[2021-07-07] VITALS (10 sets, daily range): BP systolic 113–122; BP diastolic 59–83; PULSE 61–89; RESP 18–20; TEMP 36.7–37.2; O2SAT 85–96
[2021-07-07] MEDS: Acetaminophen 325 MG Tablet 650 MG PO ×3 (05:24→21:17)
[2021-07-07 06:11] LABS: Absolute Lymphocyte Count 1.98 X10^3/uL (0.83-4.51); Absolute Neutrophil Count 7.8 X10^3/uL (2.0-7.7); Basophil# 0.03 X10^3/uL; Basophil% 0.3 % (0-1); Hematocrit 36.4 % (37-47); Lymphocyte # 1.98 X10^3/ul (0.83-4.51); Lymphocyte % 19.1 % (19-41); Mean Corpuscular Hgb 28.3 pg (27.0-32.0); Mean Corpuscular Volume 85.8 fL (81-99); Mean Platelet Vol. 9.9 fl (6.2-12.0); Monocyte# 0.47 X10^3/uL; Monocyte% 4.5 % (0-10); NRBC Flagged by Analyzer 0 % (0-5); Neutrophil # 7.77 X10^3/uL (2.7-7.7); Neutrophil % 75.2 % (47-70); POSITIVE MORPHOLOGY YES; Platelet Count 451 K/mm3 (150-450); RBC Distribution Width CV 13.2 % (11.6-14.6); RBC Distribution Width SD 41.1 fl (35.1-43.9); Red Blood Count 4.24 M/mm3 (4.2-5.4); White Blood Count 10.3 K/mm3 (4.4-11.0)
[2021-07-07 06:16] LABS: Differential Indicated SCAN CRITERIA MET
[2021-07-07 06:42] LABS: ALB/GLOB Ratio 0.5 RATIO (0.9-2.4); AST(SGOT) 64 U/L (15-37); Alanine Aminotransfer ALT/SGPT 58 U/L (13-56); Albumin, Serum 2.3 g/dL (3.2-5.0); Alkaline Phosphatase 67 U/L (45-117); Anion Gap 5 (5-15); Atypical Lymphocyte 1+ %; BUN 20 mg/dL (7-18); BUN/Creat Ratio 31.5 RATIO (10-20); Calcium,Total 8.5 mg/dL (8.5-10.1); Chloride 105 mmol/L (98-107); Creatinine, Serum 0.63 mg/dL (0.55-1.02); EST Glomerular Filtration Rate 105 mL/min (>60); Est Glom Filt Rate - Afr Amer 127 mL/min (>60); Estimated Creatinine Clearance 102.73 ml/min; Globulin 4.4 g/dL (2.2-4.2); Glucose 142 mg/dL (74-106); Protein, Total 6.7 g/dL (6.4-8.2); Sodium Level 139 mmol/L (136-145)
--- NOTE | 2021-07-07 07:44 | PN.HOSP_ITS ---
Subjective Subjective Patient seen with increasing oxygen requirement. Was also seen in consultation by IV and pulmonary. Patient was started on baricitinib. Objective Data Objective Data Vital Signs: Vital Signs Temp Pulse Resp BP Pulse Ox 98.1 F 76 18 113/59 L 95 07/07/21 05:18 07/07/21 05:18 07/07/21 05:18 07/07/21 05:18 07/07/21 05:18 Oxygen Flow Rate (L/min) 15 Oxygen Delivery Method High Flow Weight: 87.3 kg Body Mass Index (BMI) 30.1 Intake & Output: Intake and Output for Last 24 Hours 07/05/21 07/06/21 07/07/21 23:59 23:59 23:59 Intake Total 500 / 500 1200 / 1200 Balance 500 / 500 1200 / 1200 Lab / Micro Data Result Diagrams: 07/07/21 05:30 07/07/21 05:30 Labs: Laboratory Results - last 24 hr 07/06/21 06:20: Reactive Lymphocytes RARE 07/06/21 06:20: Sodium 140, Potassium 4.0, Chloride 105, Carbon Dioxide 25.0, Anion Gap 10, BUN 11, Creatinine 0.72, Estim Creat Clear Calc 89.89, Est GFR (MDRD) Af Amer 110, Est GFR (MDRD) Non-Af 91, BUN/Creatinine Ratio 15.4, Glucose 128 H, Calcium 8.7, Total Bilirubin 0.40, AST 78 H, ALT 51, Alkaline Phosphatase 68, Total Protein 7.0, Albumin 2.4 L, Globulin 4.6 H, Albumin/Globulin Ratio 0.5 L 07/06/21 06:20: Lactate Dehydrogenase 832 H, Total Creatine Kinase 212 H, C- React Prot Ext Range 297.00 H 07/06/21 06:20: Procalcitonin 0.14 H 07/06/21 10:12: Fibrinogen 873 H, D-Dimer Quant (PE/DVT) 3.21 H* 07/06/21 10:12: Lactic Acid 1.4 07/07/21 05:30: WBC 10.3, RBC 4.24, Hgb 12.0, Hct 36.4 L, MCV 85.8, MCH 28.3, MCHC 33.0, RDW Std Deviation 41.1, RDW Coeff of Thania 13.2, Plt Count 451 H, MPV 9.9, Immature Gran % (Auto) 0.900, Neut % (Auto) 75.2 H, Lymph % (Auto) 19.1, Yancey % (Auto) 4.5, Eos % (Auto) 0.0, Baso % (Auto) 0.3, Absolute Neuts (auto) 7.8 H, Absolute Lymphs (auto) 1.98, Nucleated RBC % 0, Atypical Lymphocytes 1+ 07/07/21 05:30: Sodium 139, Potassium 4.0, Chloride 105, Carbon Dioxide 29.0, Anion Gap 5, BUN 20 H, Creatinine 0.63, Estim Creat Clear Calc 102.73, Est GFR (MDRD) Af Amer 127, Est GFR (MDRD) Non-Af 105, BUN/Creatinine Ratio 31.5 H, Glucose 142 H, Calcium 8.5, Total Bilirubin 0.30, AST 64 H, ALT 58 H, Alkaline Phosphatase 67, Total Protein 6.7, Albumin 2.3 L, Globulin 4.4 H, Albumin/Globulin Ratio 0.5 L Radiography Diagnostic Testing: Radiology Impression Chest CTA 07/06/21 11:08 IMPRESSION: Diffuse bilateral pulmonary infiltrates as described. Pneumonitis associated with Covid should be ruled out. Electronically Signed: Frederick Campos MD at 12:11 EST , Service support , Physical Exam Narrative GENERAL: Dyspneic at rest HEENT: Atraumatic; EYES; Anicteric, Normal Conjunctiva NECK; supple, normal thyroid, RESPIRATORY: Diminished to auscultation CARDIOVASCULAR: Regular S1 S2, GI: soft, normoactive bowel sounds, : No Renal angle tenderness; EXTREMITIES: No edema, no clubbing, MUSCULOSKELETAL: no muscle waisting NEURO: Awake; no lateralizing signs. SKIN: No Rash PSYCH; Flat affect Assessment & Plan Assessment/Plan (1) Pneumonia due to 2019-nCoV: PLAN: Patient is a 50-year-old lady unvaccinated against COVID-19 pneumonia presented with progressive shortness of breath 1. Acute hypoxic respiratory failure ?Secondary to COVID-19 pneumonia patient on supplemental oxygen ?07/07/2021;Patient seen with increasing oxygen requirement. Was also seen in consultation by IV and pulmonary. Patient was started on baricitinib. 2. COVID-19 pneumonia ?Patient was started on Decadron and remdesivir in addition to supplemental oxygen as discussed above. In view of patient worsening respiratory status consult was placed to pulmonary medicine as well as infectious disease for consideration for initiation of baricitinib 3. Arrhythmia?? SVT As patient is on beta-blockers 4. DVT prophylaxis ?On Lovenox Charges/Coding Visit Charges Inpatient E&M: 81145 Subs Hosp L3
[2021-07-07] MEDS: Metoprolol(XL)Succ 25 MG Tablet 12.5 MG PO (11:03)
[2021-07-07] MEDS: Enoxaparin 40 MG/0.4 ML Syringe SC (11:03)
[2021-07-07] MEDS: dexAMETHasone 4 MG Tablet 6 MG PO (11:03)
[2021-07-07] MEDS: Aspirin 81 MG TAB.CHEW PO (11:04)
[2021-07-07] MEDS: guaiFENesin 1,200 MG Tablet 1200 MG PO ×2 (14:40→21:18)
[2021-07-07] MEDS: 0.9% Saline Lock 10 ML Syringe IV (21:24)
[2021-07-08] VITALS (14 sets, daily range): BP systolic 112–134; BP diastolic 64–93; PULSE 53–73; RESP 18–20; TEMP 36.3–37.4; O2SAT 84–97
[2021-07-08] MEDS: Temazepam 15 MG Capsule PO ×2 (00:38→23:54)
[2021-07-08 07:08] LABS: Absolute Lymphocyte Count 1.61 X10^3/uL (0.83-4.51); Absolute Neutrophil Count 8.9 X10^3/uL (2.0-7.7); Basophil# 0.02 X10^3/uL; Basophil% 0.2 % (0-1); Hematocrit 34.1 % (37-47); Hemoglobin 11.5 g/dL (12.0-15.0); Lymphocyte # 1.61 X10^3/ul (0.83-4.51); Lymphocyte % 14.6 % (19-41); Mean Corp Hgb Conc 33.7 g/dL (32-36); Mean Corpuscular Hgb 28.8 pg (27.0-32.0); Mean Corpuscular Volume 85.5 fL (81-99); Mean Platelet Vol. 9.7 fl (6.2-12.0); Monocyte# 0.44 X10^3/uL; NRBC Flagged by Analyzer 0 % (0-5); Neutrophil # 8.88 X10^3/uL (2.7-7.7); Neutrophil % 80.7 % (47-70); POSITIVE MORPHOLOGY YES; Platelet Count 451 K/mm3 (150-450); RBC Distribution Width CV 13.2 % (11.6-14.6); RBC Distribution Width SD 41.3 fl (35.1-43.9); Red Blood Count 3.99 M/mm3 (4.2-5.4)
[2021-07-08 07:12] LABS: Differential Indicated SCAN CRITERIA MET
[2021-07-08 07:38] LABS: ALB/GLOB Ratio 0.6 RATIO (0.9-2.4); AST(SGOT) 45 U/L (15-37); Alanine Aminotransfer ALT/SGPT 46 U/L (13-56); Albumin, Serum 2.2 g/dL (3.2-5.0); Alkaline Phosphatase 65 U/L (45-117); Anion Gap 3 (5-15); BUN 22 mg/dL (7-18); BUN/Creat Ratio 35.7 RATIO (10-20); Calcium,Total 8.6 mg/dL (8.5-10.1); Chloride 107 mmol/L (98-107); Creatinine, Serum 0.62 mg/dL (0.55-1.02); EST Glomerular Filtration Rate 108 mL/min (>60); Est Glom Filt Rate - Afr Amer 131 mL/min (>60); Estimated Creatinine Clearance 104.39 ml/min; Glucose 136 mg/dL (74-106); Potassium 4.4 mmol/L (3.5-5.1); Protein, Total 6.2 g/dL (6.4-8.2); Sodium Level 138 mmol/L (136-145)
[2021-07-08 07:40] LABS: Atypical Lymphocyte RARE %
--- NOTE | 2021-07-08 07:45 | PN.HOSP_ITS ---
Subjective Subjective Patient seen still requiring high flow oxygen currently on 40 L/min flow with oxygen saturation in the low 90s Objective Data Objective Data Vital Signs: Vital Signs Temp Pulse Resp BP Pulse Ox 97.3 F L 59 L 18 112/64 94 07/08/21 03:40 07/08/21 03:40 07/08/21 03:40 07/08/21 03:40 07/08/21 03:40 Oxygen Flow Rate (L/min) 14 Oxygen Delivery Method High Flow Weight: 87.3 kg Body Mass Index (BMI) 30.1 Intake & Output: Intake and Output for Last 24 Hours 07/06/21 07/07/21 07/08/21 23:59 23:59 23:59 Intake Total 1200 / 1200 400 / 400 250 / 250 Balance 1200 / 1200 400 / 400 250 / 250 Lab / Micro Data Result Diagrams: 07/08/21 06:35 07/08/21 06:35 Labs: Laboratory Results - last 24 hr 07/08/21 06:35: WBC 11.0, RBC 3.99 L, Hgb 11.5 L, Hct 34.1 L, MCV 85.5, MCH 28.8, MCHC 33.7, RDW Std Deviation 41.3, RDW Coeff of Thania 13.2, Plt Count 451 H, MPV 9.7, Immature Gran % (Auto) 0.500, Neut % (Auto) 80.7 H, Lymph % (Auto) 14.6 L, [place] % (Auto) 4.0, Eos % (Auto) 0.0, Baso % (Auto) 0.2, Absolute Neuts (auto) 8.9 H, Absolute Lymphs (auto) 1.61, Nucleated RBC % 0, Atypical Lymphocytes RARE 07/08/21 06:35: Sodium 138, Potassium 4.4, Chloride 107, Carbon Dioxide 28.0, Anion Gap 3 L, BUN 22 H, Creatinine 0.62, Estim Creat Clear Calc 104.39, Est GFR (MDRD) Af Amer 131, Est GFR (MDRD) Non-Af 108, BUN/Creatinine Ratio 35.7 H, Glucose 136 H, Calcium 8.6, Total Bilirubin 0.60, AST 45 H, ALT 46, Alkaline Phosphatase 65, Total Protein 6.2 L, Albumin 2.2 L, Globulin 4.0, Albumin/Globulin Ratio 0.6 L Physical Exam Narrative GENERAL: Dyspneic at rest HEENT: Atraumatic; EYES; Anicteric, Normal Conjunctiva NECK; supple, normal thyroid, RESPIRATORY: Diminished to auscultation CARDIOVASCULAR: Regular S1 S2, GI: soft, normoactive bowel sounds, : No Renal angle tenderness; EXTREMITIES: No edema, no clubbing, MUSCULOSKELETAL: no muscle waisting NEURO: Awake; no lateralizing signs. SKIN: No Rash PSYCH; Flat affect Assessment & Plan Assessment/Plan (1) Pneumonia due to 2019-nCoV: PLAN: Patient is a 50-year-old lady unvaccinated against COVID-19 pneum onia presented with progressive shortness of breath 1. Acute hypoxic respiratory failure ?Secondary to COVID-19 pneumonia patient on supplemental oxygen ?07/07/2021;Patient seen with increasing oxygen requirement. Was also seen in consultation by IV and pulmonary. Patient was started on baricitinib. -07/08/2021; Patient seen still requiring high flow oxygen currently on 40 L/min flow with oxygen saturation in the low 90s 2. COVID-19 pneumonia ?Patient was started on Decadron and remdesivir in addition to supplemental oxygen as discussed above. In view of patient worsening respiratory status consult was placed to pulmonary medicine as well as infectious disease for consideration for initiation of baricitinib 3. Arrhythmia?? SVT As patient is on beta-blockers 4. DVT prophylaxis ?On Lovenox Charges/Coding Visit Charges Inpatient E&M: 70822 Subs Hosp L2
[2021-07-08] MEDS: Aspirin 81 MG TAB.CHEW PO (10:07)
[2021-07-08] MEDS: Acetaminophen 325 MG Tablet 650 MG PO ×2 (10:07→21:07)
[2021-07-08] MEDS: Enoxaparin 40 MG/0.4 ML Syringe SC (10:07)
[2021-07-08] MEDS: dexAMETHasone 4 MG Tablet 6 MG PO (10:08)
[2021-07-08] MEDS: Metoprolol(XL)Succ 25 MG Tablet 12.5 MG PO (10:08)
[2021-07-08] MEDS: guaiFENesin 1,200 MG Tablet 1200 MG PO ×2 (10:08→21:07)
--- NOTE | 2021-07-08 11:11 | PN.CC_ITS ---
Assessment & Plan Assessment/Plan (1) Hypoxemia: (2) Pneumonia due to 2019-nCoV: PLAN: RECOMMENDATIONS: 1. Continue remdesivir, Decadron and baricitinib as ordered. 2. Continue prophylactic Lovenox. 3. Wean supplemental oxygen to maintain saturations at or above 90%. 4. Awake prone positioning was encouraged. 5. Diuretics can utilized as needed to maintain euvolemic state. IMPRESSIONS: 1. Acute hypoxemic respiratory failure secondary to COVID-19 pneumonia The patient presented to the hospital with worsening dyspnea and hypoxemia after having received an outpatient monoclonal antibody infusion on July 05. She is currently maintaining appropriate oxygen saturations on high flow nasal cannula. The patient will be continued on remdesivir, Decadron and baricitinib. CTA chest was negative for PE. Therefore, we will continue prophylactic Lovenox. Continue to wean supplemental oxygen to maintain saturations at or above 90%. Encourage incentive spirometer use and mobilize patient as tolerated. Awake prone positioning was encouraged. This note was generated with [employer] dictation software. It may contain incorrect words, spelling, and punctuation that were not noted in checking the note before signing. Subjective Subjective The patient was seen and examined at the bedside this morning. Events from the last 24 hours have been reviewed. The patient is currently afebrile, hemodynamically stable and maintaining appropriate oxygen saturations on 15 L/min via nasal cannula. Liver and renal function are stable. The patient remains on remdesivir, prophylactic Lovenox, Decadron and baricitinib. Objective Data Objective Data The patient's most recent lab work, culture data and imaging studies have all been personally reviewed. Coronavirus PCR was positive on July 03. Vital Signs: Vital Signs Temp Pulse Resp BP Pulse Ox 98.4 F 64 20 H 134/79 H 93 07/08/21 09:58 07/08/21 10:08 07/08/21 10:35 07/08/21 09:58 07/08/21 10:35 Oxygen Flow Rate (L/min) 15 Oxygen Delivery Method High Flow Weight: 87.3 kg Body Mass Index (BMI) 30.1 Intake & Output: Intake and Output for Last 24 Hours 07/06/21 07/07/21 07/08/21 23:59 23:59 23:59 Intake Total 1200 / 1200 400 / 400 250 / 250 Balance 1200 / 1200 400 / 400 250 / 250 Lab / Micro Data Attestation: I reviewed the patient's lab results. Result Diagrams: 07/08/21 06:35 07/08/21 06:35 Labs: Laboratory Results - last 24 hr 07/08/21 06:35: WBC 11.0, RBC 3.99 L, Hgb 11.5 L, Hct 34.1 L, MCV 85.5, MCH 28.8, MCHC 33.7, RDW Std Deviation 41.3, RDW Coeff of Thania 13.2, Plt Count 451 H, MPV 9.7, Immature Gran % (Auto) 0.500, Neut % (Auto) 80.7 H, Lymph % (Auto) 14.6 L, [place] % (Auto) 4.0, Eos % (Auto) 0.0, Baso % (Auto) 0.2, Absolute Neuts (auto) 8.9 H, Absolute Lymphs (auto) 1.61, Nucleated RBC % 0, Atypical Lymphocytes RARE 07/08/21 06:35: Sodium 138, Potassium 4.4, Chloride 107, Carbon Dioxide 28.0, Anion Gap 3 L, BUN 22 H, Creatinine 0.62, Estim Creat Clear Calc 104.39, Est GFR (MDRD) Af Amer 131, Est GFR (MDRD) Non-Af 108, BUN/Creatinine Ratio 35.7 H, Glucose 136 H, Calcium 8.6, Total Bilirubin 0.60, AST 45 H, ALT 46, Alkaline Phosphatase 65, Total Protein 6.2 L, Albumin 2.2 L, Globulin 4.0, Albumin/Globulin Ratio 0.6 L Physical Exam Const alert, oriented x3 and no apparent distress General Appearance: cooperative HEENT normocephalic, head/scalp atraumatic and moist oral mucous membranes Eyes PERRL, EOMs intact bilaterally and conjunctivae normal Neck supple General: trachea midline Chest inspection of chest normal Resp normal respiratory effort Auscultation: Negative for rales, rhonchi or wheezes Cardio regular rate and regular rhythm GI normal to inspection, nondistended, normoactive bowel sounds Extremity no clubbing, cyanosis or edema Skin no rashes or lesions noted Neuro CN's II-XII intact bilaterally, moves all extremities and no focal motor deficits Psych cooperative and affect normal Charges/Coding Visit Charges Inpatient E&M: 35805 Subs Hosp L2
--- NOTE | 2021-07-08 14:21 | NURSING ---
pt ambulated to BR and back to chair on 15L 02. When she got back to chair her pulse ox was 85%. After a couple minutes of recovery she was back up to 92-93% on 15L. Will monitor.
[2021-07-08] MEDS: 0.9% Saline Lock 10 ML Syringe IV ×2 (21:08→23:52)
[2021-07-09] VITALS (11 sets, daily range): BP systolic 114–146; BP diastolic 68–80; PULSE 57–98; RESP 16–24; TEMP 36.8–38.9; O2SAT 90–96
[2021-07-09] MEDS: Acetaminophen 325 MG Tablet 650 MG PO ×3 (03:11→18:21)
--- NOTE | 2021-07-09 07:53 | PCM.PN.HOSP ---
Subjective Subjective Patient seen still requiring high flow oxygen. Patient has fever with T-max of 102.1. Did send for sputum as well as blood cultures. Patient started on empiric antibiotic therapy pending culture results. Objective Data Objective Data Vital Signs: Vital Signs Temp Pulse Resp BP Pulse Ox 98.4 F 80 16 134/80 H 95 07/09/21 03:16 07/09/21 07:28 07/09/21 03:16 07/09/21 03:16 07/09/21 07:28 Oxygen Flow Rate (L/min) 12 Oxygen Delivery Method High Flow Weight: 87.3 kg Body Mass Index (BMI) 30.1 Intake & Output: Intake and Output for Last 24 Hours 07/07/21 07/08/21 07/09/21 23:59 23:59 23:59 Intake Total 400 / 400 1700 / 1700 Balance 400 / 400 1700 / 1700 Lab / Micro Data Result Diagrams: 07/09/21 07:08 07/09/21 07:08 Physical Exam Narrative GENERAL: Dyspneic at rest HEENT: Atraumatic; EYES; Anicteric, Normal Conjunctiva NECK; supple, normal thyroid, RESPIRATORY: Diminished to auscultation CARDIOVASCULAR: Regular S1 S2, GI: soft, normoactive bowel sounds, : No Renal angle tenderness; EXTREMITIES: No edema, no clubbing, MUSCULOSKELETAL: no muscle waisting NEURO: Awake; no lateralizing signs. SKIN: No Rash PSYCH; Flat affect Assessment & Plan Assessment/Plan (1) Pneumonia due to 2019-nCoV: PLAN: Patient is a 50-year-old lady unvaccinated against COVID-19 pneumonia presented with progressive shortness of breath 1. Acute hypoxic respiratory failure ?Secondary to COVID-19 pneumonia patient on supplemental oxygen ?07/07/2021;Patient seen with increasing oxygen requirement. Was also seen in consultation by IV and pulmonary. Patient was started on baricitinib. -07/08/2021; Patient seen still requiring high flow oxygen currently on 40 L/min flow with oxygen saturation in the low 90s ?07/09/2021; patient still requiring high flow oxygen, currently requiring 15 L/min flow via nasal cannula 2. COVID-19 pneumonia ?Patient was started on Decadron and remdesivir in addition to supplemental oxygen as discussed above. In view of patient worsening respiratory status consult was placed to pulmonary medicine as well as infectious disease for consideration for initiation of baricitinib -07/09/2021 patient was started on baricitinib after evaluation by I ElaineP Patient has fever with T-max of 102.1. Did send for sputum as well as blood cultures. Patient started on empiric antibiotic therapy pending culture results. 3. Arrhythmia?? SVT As patient is on beta-blockers 4. DVT prophylaxis ?On Lovenox Charges/Coding Visit Charges Inpatient E&M: 74942 Subs Hosp L3
[2021-07-09 08:05] LABS: Absolute Lymphocyte Count 1.53 X10^3/uL (0.83-4.51); Absolute Neutrophil Count 9.1 X10^3/uL (2.0-7.7); Basophil# 0.01 X10^3/uL; Basophil% 0.1 % (0-1); Eosinophil# 0.03 X10^3/uL; Eosinophils% 0.3 % (0-5); Hematocrit 36.9 % (37-47); Hemoglobin 12.6 g/dL (12.0-15.0); Lymphocyte # 1.53 X10^3/ul (0.83-4.51); Lymphocyte % 13.9 % (19-41); Mean Corp Hgb Conc 34.1 g/dL (32-36); Mean Corpuscular Volume 84.8 fL (81-99); Mean Platelet Vol. 9.6 fl (6.2-12.0); Monocyte# 0.22 X10^3/uL; NRBC Flagged by Analyzer 0 % (0-5); Neutrophil % 82.5 % (47-70); Platelet Count 502 K/mm3 (150-450); RBC Distribution Width SD 40.3 fl (35.1-43.9); Red Blood Count 4.35 M/mm3 (4.2-5.4)
[2021-07-09 08:50] LABS: ALB/GLOB Ratio 0.6 RATIO (0.9-2.4); AST(SGOT) 37 U/L (15-37); Alanine Aminotransfer ALT/SGPT 49 U/L (13-56); Albumin, Serum 2.5 g/dL (3.2-5.0); Alkaline Phosphatase 72 U/L (45-117); Anion Gap 7 (5-15); BUN 17 mg/dL (7-18); BUN/Creat Ratio 25.9 RATIO (10-20); Calcium,Total 8.3 mg/dL (8.5-10.1); Chloride 103 mmol/L (98-107); Creatinine, Serum 0.66 mg/dL (0.55-1.02); EST Glomerular Filtration Rate 101 mL/min (>60); Est Glom Filt Rate - Afr Amer 122 mL/min (>60); Estimated Creatinine Clearance 98.06 ml/min; Globulin 4.3 g/dL (2.2-4.2); Glucose 84 mg/dL (74-106); Potassium 3.9 mmol/L (3.5-5.1); Protein, Total 6.8 g/dL (6.4-8.2); Sodium Level 138 mmol/L (136-145)
[2021-07-09] MEDS: dexAMETHasone 4 MG Tablet 6 MG PO (08:54)
[2021-07-09] MEDS: Enoxaparin 40 MG/0.4 ML Syringe SC (08:54)
[2021-07-09] MEDS: guaiFENesin 1,200 MG Tablet 1200 MG PO (08:55)
[2021-07-09] MEDS: Metoprolol(XL)Succ 25 MG Tablet 12.5 MG PO (08:56)
[2021-07-09] MEDS: Aspirin 81 MG TAB.CHEW PO (08:56)
--- NOTE | 2021-07-09 09:15 | NURSING ---
Dr. Cantu in to see pt while this nurse was in with pt. Dr. Cantu made aware by this nurse that pt had a temp of 102.1. Dr. Cantu wants pt to get antibotic and a sputum. Specimen cup given for sputum to pt and education given. pt understands.
[2021-07-09] MEDS: levoFLOXacin IV 750 MG/150 ML BAG 100 MG IV (11:46)
[2021-07-09] MEDS: Ibuprofen 400 MG Tablet PO (13:03)
--- NOTE | 2021-07-09 13:18 | NURSING ---
Pt up to bathroom and then back to sitting in chair.
--- NOTE | 2021-07-09 16:19 | PCM.RX.CS ---
Consult Pharmacy has been consulted to manage selected antiobiotic: Vancomycin Type of Consult: New start Suspected Infection: Pneumonia Prior Doses of Antibiotics Received/Current Regimen: Received 2000mg iv x 1 as initial dose on 07.09.21. Labs: Sodium 138 mmol/L (136-145) 07/09/21 07:08 Potassium 3.9 mmol/L (3.5-5.1) 07/09/21 07:08 Chloride 103 mmol/L (98-107) 07/09/21 07:08 Carbon Dioxide 28.0 mmol/L (21.0-32.0) 07/09/21 07:08 Anion Gap 7 (5-15) 07/09/21 07:08 BUN 17 mg/dL (7-18) 07/09/21 07:08 Creatinine 0.66 mg/dL (0.55-1.02) 07/09/21 07:08 Est GFR (MDRD) Af Amer 122 mL/min (>60) 07/09/21 07:08 Est GFR (MDRD) Non-Af 101 mL/min (>60) 07/09/21 07:08 BUN/Creatinine Ratio 25.9 RATIO (10-20) H 07/09/21 07:08 Glucose 84 mg/dL (74-106) 07/09/21 07:08 Weight used for dosin.3 kg Estimated Creatinine Clearance: 98 ml/min Goal Trough: 15-20 mcg/mL Pharmacy Plan for Drug Dosing: Will begin 1750mg iv q12h per protocol. Trough level ordered for 07.11.21 before 4th total dose. Pharmacy Service will continue to monitor and adjust dosing as required. Follow-Up Labs: Trough Vancomycin - 07.11.21@0230 before 0300 dose
--- NOTE | 2021-07-09 18:22 | NURSING ---
Continues to sit in chair. spo2 93% on 10L NC
[2021-07-09] MEDS: 0.9% Saline Lock 10 ML Syringe IV (21:50)
[2021-07-10] VITALS (7 sets, daily range): BP systolic 109–138; BP diastolic 61–75; PULSE 60–77; RESP 18–20; TEMP 36.2–38.2; O2SAT 93–98
[2021-07-10] MEDS: Temazepam 15 MG Capsule PO ×2 (00:14→23:46)
[2021-07-10] MEDS: Acetaminophen 325 MG Tablet 650 MG PO ×3 (00:14→23:02)
[2021-07-10 06:50] LABS: Absolute Lymphocyte Count 1.41 X10^3/uL (0.83-4.51); Absolute Neutrophil Count 7.3 X10^3/uL (2.0-7.7); Basophil# 0.02 X10^3/uL; Basophil% 0.2 % (0-1); Eosinophil# 0.09 X10^3/uL; Hematocrit 33.4 % (37-47); Hemoglobin 11.1 g/dL (12.0-15.0); Lymphocyte # 1.41 X10^3/ul (0.83-4.51); Lymphocyte % 15.2 % (19-41); Mean Corp Hgb Conc 33.2 g/dL (32-36); Mean Corpuscular Hgb 28.3 pg (27.0-32.0); Mean Corpuscular Volume 85.2 fL (81-99); Mean Platelet Vol. 9.7 fl (6.2-12.0); Monocyte# 0.29 X10^3/uL; Monocyte% 3.1 % (0-10); NRBC Flagged by Analyzer 0 % (0-5); Neutrophil # 7.25 X10^3/uL (2.7-7.7); Neutrophil % 78.1 % (47-70); Platelet Count 428 K/mm3 (150-450); RBC Distribution Width CV 13.1 % (11.6-14.6); RBC Distribution Width SD 40.4 fl (35.1-43.9); Red Blood Count 3.92 M/mm3 (4.2-5.4); White Blood Count 9.3 K/mm3 (4.4-11.0)
[2021-07-10 07:24] LABS: ALB/GLOB Ratio 0.5 RATIO (0.9-2.4); AST(SGOT) 27 U/L (15-37); Alanine Aminotransfer ALT/SGPT 39 U/L (13-56); Alkaline Phosphatase 57 U/L (45-117); Anion Gap 8 (5-15); BUN 13 mg/dL (7-18); BUN/Creat Ratio 23.2 RATIO (10-20); Calcium,Total 8.1 mg/dL (8.5-10.1); Chloride 105 mmol/L (98-107); Creatinine, Serum 0.56 mg/dL (0.55-1.02); EST Glomerular Filtration Rate 121 mL/min (>60); Est Glom Filt Rate - Afr Amer 146 mL/min (>60); Estimated Creatinine Clearance 115.58 ml/min; Globulin 3.8 g/dL (2.2-4.2); Glucose 94 mg/dL (74-106); Protein, Total 5.8 g/dL (6.4-8.2); Sodium Level 139 mmol/L (136-145)
--- NOTE | 2021-07-10 07:32 | PCM.PN.HOSP ---
Subjective Subjective Patient seen oxygen requirement currently down to 10 L/min . Has remained afebrile following initiation of broad-spectrum antibiotic therapy Objective Data Objective Data Vital Signs: Vital Signs Temp Pulse Resp BP Pulse Ox 97.2 F L 60 18 119/65 98 07/10/21 03:10 07/10/21 03:10 07/10/21 03:10 07/10/21 03:10 07/10/21 03:10 Oxygen Flow Rate (L/min) 10 Oxygen Delivery Method High Flow Weight: 87.3 kg Body Mass Index (BMI) 30.1 Intake & Output: Intake and Output for Last 24 Hours 07/08/21 07/09/21 07/10/21 23:59 23:59 23:59 Intake Total 1700 / 1700 1399.5 / 1399.5 535 / 535 Balance 1700 / 1700 1399.5 / 1399.5 535 / 535 Lab / Micro Data Result Diagrams: 07/10/21 06:04 07/10/21 06:04 Labs: Laboratory Results - last 24 hr 07/09/21 07:08: WBC 11.0, RBC 4.35, Hgb 12.6, Hct 36.9 L, MCV 84.8, MCH 29.0, MCHC 34.1, RDW Std Deviation 40.3, RDW Coeff of Thania 13.0, Plt Count 502 H, MPV 9.6, Immature Gran % (Auto) 1.200 H, Neut % (Auto) 82.5 H, Lymph % (Auto) 13.9 L, [place] % (Auto) 2.0, Eos % (Auto) 0.3, Baso % (Auto) 0.1, Absolute Neuts (auto) 9.1 H, Absolute Lymphs (auto) 1.53, Nucleated RBC % 0 07/09/21 07:08: Sodium 138, Potassium 3.9, Chloride 103, Carbon Dioxide 28.0, Anion Gap 7, BUN 17, Creatinine 0.66, Estim Creat Clear Calc 98.06, Est GFR (MDRD) Af Amer 122, Est GFR (MDRD) Non-Af 101, BUN/Creatinine Ratio 25.9 H, Glucose 84, Calcium 8.3 L, Total Bilirubin 0.80, AST 37, ALT 49, Alkaline Phosphatase 72, Total Protein 6.8, Albumin 2.5 L, Globulin 4.3 H, Albumin/Globulin Ratio 0.6 L 07/10/21 06:04: WBC 9.3, RBC 3.92 L, Hgb 11.1 L, Hct 33.4 L, MCV 85.2, MCH 28.3, MCHC 33.2, RDW Std Deviation 40.4, RDW Coeff of Thania 13.1, Plt Count 428, MPV 9.7, Immature Gran % (Auto) 2.400 H, Neut % (Auto) 78.1 H, Lymph % (Auto) 15.2 L, [place] % (Auto) 3.1, Eos % (Auto) 1.0, Baso % (Auto) 0.2, Absolute Neuts (auto) 7.3, Absolute Lymphs (auto) 1.41, Nucleated RBC % 0 07/10/21 06:04: Sodium 139, Potassium 4.0, Chloride 105, Carbon Dioxide 26.0, Anion Gap 8, BUN 13, Creatinine 0.56, Estim Creat Clear Calc 115.58, Est GFR (MDRD) Af Amer 146, Est GFR (MDRD) Non-Af 121, BUN/Creatinine Ratio 23.2 H, Glucose 94, Calcium 8.1 L, Total Bilirubin 0.60, AST 27, ALT 39, Alkaline Phosphatase 57, Total Protein 5.8 L, Albumin 2.0 L, Globulin 3.8, Albumin/Globulin Ratio 0.5 L Micro: Microbiology 07/09/21 10:12 Sputum, Expectorated/Coughed Gram Stain - Preliminary Physical Exam Narrative GENERAL: Dyspneic at rest HEENT: Atraumatic; EYES; Anicteric, Normal Conjunctiva NECK; supple, normal thyroid, RESPIRATORY: Diminished to auscultation CARDIOVASCULAR: Regular S1 S2, GI: soft, normoactive bowel sounds, : No Renal angle tenderness; EXTREMITIES: No edema, no clubbing, MUSCULOSKELETAL: no muscle waisting NEURO: Awake; no lateralizing signs. SKIN: No Rash PSYCH; Flat affect Assessment & Plan Assessment/Plan (1) Pneumonia due to 2019-nCoV: PLAN: Patient is a 50-year-old lady unvaccinated against COVID-19 pneumonia presented with progressive shortness of breath 1. Acute hypoxic respiratory failure ?Secondary to COVID-19 pneumonia patient on supplemental oxygen ?07/07/2021;Patient seen with increasing oxygen requirement. Was also seen in consultation by IV and pulmonary. Patient was started on baricitinib. -07/08/2021; Patient seen still requiring high flow oxygen currently on 40 L/min flow with oxygen saturation in the low 90s ?07/09/2021; patient still requiring high flow oxygen, currently requiring 15 L/min flow via nasal cannula -07/10/2021; Patient seen oxygen requirement currently down to 10 L/min . Has remained afebrile following initiation of broad-spectrum antibiotic therapy 2. COVID-19 pneumonia ?Patient was started on Decadron and remdesivir in addition to supplemental oxygen as discussed above. In view of patient worsening respiratory status consult was placed to pulmonary medicine as well as infectious disease for consideration for initiation of baricitinib -07/09/2021 patient was started on baricitinib after evaluation by I ElaineP Patient has fever with T-max of 102.1. Did send for sputum as well as blood cultures. Patient started on empiric antibiotic therapy pending culture results. 3. Arrhythmia?? SVT Patient is on beta-blockers 4. DVT prophylaxis ?On Lovenox Charges/Coding Visit Charges Inpatient E&M: 67577 Subs Hosp L2
--- NOTE | 2021-07-10 09:48 | PN.CC_ITS ---
Assessment & Plan Assessment/Plan (1) Hypoxemia: (2) Pneumonia due to 2019-nCoV: PLAN: RECOMMENDATIONS: 1. Continue remdesivir, Decadron and baricitinib as ordered. 2. Continue prophylactic Lovenox. 3. Wean supplemental oxygen to maintain saturations at or above 90%. 4. Awake prone positioning was encouraged. 5. Diuretics can utilized as needed to maintain euvolemic state. IMPRESSIONS: 1. Acute hypoxemic respiratory failure secondary to COVID-19 pneumonia The patient presented to the hospital with worsening dyspnea and hypoxemia after having received an outpatient monoclonal antibody infusion on July 05. She is currently maintaining appropriate oxygen saturations on high flow nasal cannula. The patient has completed her treatment course of remdesivir. She will remain on Decadron and baricitinib as ordered. Due to the development of fevers, the patient was also placed on empiric antimicrobials. CTA chest was neg ative for PE. Therefore, we will continue prophylactic Lovenox. Continue to wean supplemental oxygen to maintain saturations at or above 90%. Encourage incentive spirometer use and mobilize patient as tolerated. Awake prone positioning was encouraged. This note was generated with [employer] dictation software. It may contain incorrect words, spelling, and punctuation that were not noted in checking the note before signing. Subjective Subjective The patient was seen and examined at the bedside this morning. Events from the last 24 hours have been reviewed. The patient is currently afebrile, hemodynamically stable and maintaining appropriate oxygen saturations on 10 L/min via nasal cannula. Liver and renal function are stable. The patient has completed a treatment course of remdesivir and remains on antimicrobials, prophylactic Lovenox, Decadron and baricitinib. Objective Data Objective Data The patient's most recent lab work, culture data and imaging studies have all been personally reviewed. Coronavirus PCR was positive on July 03. Sputum culture pending. Vital Signs: Vital Signs Temp Pulse Resp BP Pulse Ox 97.2 F L 60 18 119/65 93 07/10/21 03:10 07/10/21 03:10 07/10/21 03:10 07/10/21 03:10 07/10/21 07:50 Oxygen Flow Rate (L/min) 10 Oxygen Delivery Method Nasal Cannula Weight: 87.3 kg Body Mass Index (BMI) 30.1 Intake & Output: Intake and Output for Last 24 Hours 07/08/21 07/09/21 07/10/21 23:59 23:59 23:59 Intake Total 1700 / 1700 1399.5 / 1399.5 535 / 535 Balance 1700 / 1700 1399.5 / 1399.5 535 / 535 Lab / Micro Data Attestation: I reviewed the patient's lab results. Result Diagrams: 07/10/21 06:04 07/10/21 06:04 Labs: Laboratory Results - last 24 hr 07/10/21 06:04: WBC 9.3, RBC 3.92 L, Hgb 11.1 L, Hct 33.4 L, MCV 85.2, MCH 28.3, MCHC 33.2, RDW Std Deviation 40.4, RDW Coeff of Thania 13.1, Plt Count 428, MPV 9.7, Immature Gran % (Auto) 2.400 H, Neut % (Auto) 78.1 H, Lymph % (Auto) 15.2 L , [place] % (Auto) 3.1, Eos % (Auto) 1.0, Baso % (Auto) 0.2, Absolute Neuts (auto) 7.3, Absolute Lymphs (auto) 1.41, Nucleated RBC % 0 07/10/21 06:04: Sodium 139, Potassium 4.0, Chloride 105, Carbon Dioxide 26.0, Anion Gap 8, BUN 13, Creatinine 0.56, Estim Creat Clear Calc 115.58, Est GFR (MDRD) Af Amer 146, Est GFR (MDRD) Non-Af 121, BUN/Creatinine Ratio 23.2 H, Glucose 94, Calcium 8.1 L, Total Bilirubin 0.60, AST 27, ALT 39, Alkaline Phosphatase 57, Total Protein 5.8 L, Albumin 2.0 L, Globulin 3.8, Albumin/Globulin Ratio 0.5 L Micro: Microbiology 07/09/21 10:12 Sputum, Expectorated/Coughed Gram Stain - Preliminary Physical Exam Const alert, oriented x3 and no apparent distress General Appearance: cooperative HEENT normocephalic, head/scalp atraumatic and moist oral mucous membranes Eyes PERRL, EOMs intact bilaterally and conjunctivae normal Neck supple General: trachea midline Chest inspection of chest normal Resp normal respiratory effort Auscultation: diminished lung sounds; Negative for rales, rhonchi or wheezes Cardio regular rate and regular rhythm GI normal to inspection, nondistended, normoactive bowel sounds Extremity no clubbing, cyanosis or edema Skin no rashes or lesions noted Neuro CN's II-XII intact bilaterally, moves all extremities and no focal motor deficits Psych cooperative and affect normal Charges/Coding Visit Charges Inpatient E&M: 82574 Subs Hosp L2
[2021-07-10] MEDS: levoFLOXacin IV 750 MG/150 ML BAG 100 MG IV (10:39)
[2021-07-10] MEDS: Enoxaparin 40 MG/0.4 ML Syringe SC (10:40)
[2021-07-10] MEDS: dexAMETHasone 4 MG Tablet 6 MG PO (10:40)
[2021-07-10] MEDS: Aspirin 81 MG TAB.CHEW PO (10:44)
[2021-07-10] MEDS: Metoprolol(XL)Succ 25 MG Tablet 12.5 MG PO (10:51)
--- NOTE | 2021-07-10 16:04 | NURSING ---
Pt been sitting in chair all day long and ambulating to bathroom as needed. Pt feels better. spo2 95% on 10L High Flow. this nurse Turned o2 down to 9L at this time. Will continue to monitor and wean as needed.
[2021-07-10] MEDS: Ibuprofen 400 MG Tablet PO (18:57)
[2021-07-10] MEDS: 0.9% Saline Lock 10 ML Syringe IV ×2 (19:59→23:05)
[2021-07-10] MEDS: guaiFENesin 1,200 MG Tablet 1200 MG PO (23:02)
[2021-07-11] VITALS (12 sets, daily range): BP systolic 105–130; BP diastolic 58–78; PULSE 50–66; RESP 18; TEMP 36.6–37.2; O2SAT 93–98
[2021-07-11] MEDS: 0.9% Saline Lock 10 ML Syringe IV (02:59)
[2021-07-11 03:21] LABS: Vancomycin, Trough Level 14.3 ug/mL (5.0-15.0)
--- NOTE | 2021-07-11 03:36 | PCM.RX.CS ---
Consult Pharmacy has been consulted to manage selected antiobiotic: Vancomycin Type of Consult: Follow-up Labs: Sodium 139 mmol/L (136-145) 07/10/21 06:04 Potassium 4.0 mmol/L (3.5-5.1) 07/10/21 06:04 Chloride 105 mmol/L (98-107) 07/10/21 06:04 Carbon Dioxide 26.0 mmol/L (21.0-32.0) 07/10/21 06:04 Anion Gap 8 (5-15) 07/10/21 06:04 BUN 13 mg/dL (7-18) 07/10/21 06:04 Creatinine 0.56 mg/dL (0.55-1.02) 07/10/21 06:04 Est GFR (MDRD) Af Amer 146 mL/min (>60) 07/10/21 06:04 Est GFR (MDRD) Non-Af 121 mL/min (>60) 07/10/21 06:04 BUN/Creatinine Ratio 23.2 RATIO (10-20) H 07/10/21 06:04 Glucose 94 mg/dL (74-106) 07/10/21 06:04 Vancomycin Trough 14.3 ug/mL (5.0-15.0) 07/11/21 02:32 Microbiology: Microbiology 07/09/21 10:12 Sputum, Expectorated/Coughed Gram Stain - Final 07/09/21 10:12 Sputum, Expectorated/Coughed Respiratory Culture - Preliminary Appears to be normal respiratory talha. Further studies to follow. Goal Trough: 15-20 mcg/mL Pharmacy Plan for Drug Dosing: Pharmacy Service will continue to monitor and adjust dosing as required. TROUGH 14.3 AT 11HRS. NO CHANGES NOW, FOLLOW UP TROUGH IN 2 DAYS Follow-Up Labs: Trough Vancomycin Labs to be done on [date and time ordered]: 07/13 @ 7099
[2021-07-11] MEDS: levoFLOXacin IV 750 MG/150 ML BAG 100 MG IV (09:05)
[2021-07-11] MEDS: Metoprolol(XL)Succ 25 MG Tablet 12.5 MG PO (09:10)
[2021-07-11] MEDS: Enoxaparin 40 MG/0.4 ML Syringe SC (09:10)
[2021-07-11] MEDS: dexAMETHasone 4 MG Tablet 6 MG PO (09:10)
[2021-07-11] MEDS: Aspirin 81 MG TAB.CHEW PO (09:11)
[2021-07-11] MEDS: guaiFENesin 1,200 MG Tablet 1200 MG PO ×2 (09:11→22:34)
[2021-07-11] MEDS: Acetaminophen 325 MG Tablet 650 MG PO ×2 (09:25→18:44)
[2021-07-11 11:08] LABS: Absolute Lymphocyte Count 1.17 X10^3/uL (0.83-4.51); Absolute Neutrophil Count 7.3 X10^3/uL (2.0-7.7); Basophil# 0.01 X10^3/uL; Basophil% 0.1 % (0-1); Eosinophil# 0.08 X10^3/uL; Eosinophils% 0.9 % (0-5); Hemoglobin 11.8 g/dL (12.0-15.0); Lymphocyte # 1.17 X10^3/ul (0.83-4.51); Lymphocyte % 12.7 % (19-41); Mean Corp Hgb Conc 34.7 g/dL (32-36); Mean Corpuscular Hgb 29.2 pg (27.0-32.0); Mean Corpuscular Volume 84.2 fL (81-99); Mean Platelet Vol. 9.6 fl (6.2-12.0); Monocyte# 0.41 X10^3/uL; Monocyte% 4.4 % (0-10); NRBC Flagged by Analyzer 0 % (0-5); Neutrophil # 7.33 X10^3/uL (2.7-7.7); Neutrophil % 79.3 % (47-70); Platelet Count 480 K/mm3 (150-450); RBC Distribution Width CV 13.2 % (11.6-14.6); RBC Distribution Width SD 40.5 fl (35.1-43.9); Red Blood Count 4.04 M/mm3 (4.2-5.4); White Blood Count 9.2 K/mm3 (4.4-11.0)
[2021-07-11 11:28] LABS: ALB/GLOB Ratio 0.5 RATIO (0.9-2.4); AST(SGOT) 27 U/L (15-37); Alanine Aminotransfer ALT/SGPT 45 U/L (13-56); Albumin, Serum 2.1 g/dL (3.2-5.0); Alkaline Phosphatase 59 U/L (45-117); Anion Gap 8 (5-15); BUN 14 mg/dL (7-18); Calcium,Total 8.4 mg/dL (8.5-10.1); Chloride 103 mmol/L (98-107); Creatinine, Serum 0.58 mg/dL (0.55-1.02); EST Glomerular Filtration Rate 115 mL/min (>60); Est Glom Filt Rate - Afr Amer 139 mL/min (>60); Estimated Creatinine Clearance 111.59 ml/min; Globulin 4.2 g/dL (2.2-4.2); Glucose 109 mg/dL (74-106); Potassium 3.8 mmol/L (3.5-5.1); Protein, Total 6.3 g/dL (6.4-8.2); Sodium Level 138 mmol/L (136-145)
[2021-07-11] MEDS: NYSTATIN 500,000 UNIT/5 ML UDC 500000 UNIT PO ×4 (11:34→22:34)
--- NOTE | 2021-07-11 14:39 | PN.CC_ITS ---
Assessment & Plan Assessment/Plan (1) Hypoxemia: (2) Pneumonia due to 2019-nCoV: PLAN: RECOMMENDATIONS: 1. Completed Remdesivir. Continue Decadron (07/16/2021) and baricitinib (07/20/2021) as ordered. 2. Continue prophylactic Lovenox. 3. Wean supplemental oxygen to maintain saturations at or above 90%. 4. Awake prone positioning was encouraged. 5. Diuretics can utilized as needed to maintain euvolemic state. IMPRESSIONS: 1. Acute hypoxemic respiratory failure secondary to COVID-19 pneumonia The patient presented to the hospital with worsening dyspnea and hypoxemia after having received an outpatient monoclonal antibody infusion on July 05. She is currently maintaining appropriate oxygen saturations on high flow nasal cannula. The patient has completed her treatment course of remdesivir. She will remain on Decadron and baricitinib as ordered. Due to the development of fevers, the patient was also placed on empiric antimicrobials. CTA chest was negative for PE. Therefore, we will continue prophylactic Lovenox. Continue to wean supplemental oxygen to maintain saturations at or above 90%. Encourage incentive spirometer use and mobilize patient as tolerated. Awake prone positioning was encouraged. Patient potentially able to be discharged if able to tolerate ambulation on 6 L or less. This note was generated with [employer] dictation software. It may contain incorrect words, spelling, and punctuation that were not noted in checking the note before signing. Subjective Subjective Patient did okay overnight. Patient has been using nasal saline liberally and states that she was able to get a significant amount out over the last 24 hours. This has led to improvement in oxygenation. Patient still reports dyspnea on exertion, but overall feels improved. Objective Data Objective Data Vital Signs: Vital Signs Temp Pulse Resp BP Pulse Ox 37.1 C 65 18 119/72 94 07/11/21 08:58 07/11/21 09:10 07/11/21 08:58 07/11/21 09:10 07/11/21 08:58 Oxygen Flow Rate (L/min) 94 Oxygen Delivery Method Nasal Cannula Weight: 87.3 kg Body Mass Index (BMI) 30.1 Intake & Output: Intake and Output for Last 24 Hours 07/09/21 07/10/21 07/11/21 23:59 23:59 23:59 Intake Total 1399.5 / 1399.5 1915.25 / 1915.25 1135 / 1135 Output Total 300 / 300 Balance 1399.5 / 1399.5 1615.25 / 1615.25 1135 / 1135 Lab / Micro Data Result Diagrams: 07/11/21 10:53 07/11/21 10:53 Labs: Laboratory Results - last 24 hr 07/11/21 02:32: Vancomycin Trough 14.3 07/11/21 10:53: WBC 9.2, RBC 4.04 L, Hgb 11.8 L, Hct 34.0 L, MCV 84.2, MCH 29.2, MCHC 34.7, RDW Std Deviation 40.5, RDW Coeff of Thania 13.2, Plt Count 480 H, MPV 9.6, Immature Gran % (Auto) 2.600 H, Neut % (Auto) 79.3 H, Lymph % (Auto) 12.7 L , [place] % (Auto) 4.4, Eos % (Auto) 0.9, Baso % (Auto) 0.1, Absolute Neuts (auto) 7.3, Absolute Lymphs (auto) 1.17, Nucleated RBC % 0 07/11/21 10:53: Sodium 138, Potassium 3.8, Chloride 103, Carbon Dioxide 27.0, Anion Gap 8, BUN 14, Creatinine 0.58, Estim Creat Clear Calc 111.59, Est GFR (MDRD) Af Amer 139, Est GFR (MDRD) Non-Af 115, BUN/Creatinine Ratio 24.0 H, Glucose 109 H, Calcium 8.4 L, Total Bilirubin 0.80, AST 27, ALT 45, Alkaline Phosphatase 59, Total Protein 6.3 L, Albumin 2.1 L, Globulin 4.2, Albumin/Globulin Ratio 0.5 L Micro: Microbiology 07/09/21 10:48 Blood Culture (Wb) - Anticubital Right Blood Culture - Preliminary No growth in 48 hours. 07/09/21 10:40 Blood Culture (Wb) - Right Wrist Blood Culture - Preliminary No growth in 48 hours. 07/09/21 10:12 Sputum, Expectorated/Coughed Gram Stain - Final 07/09/21 10:12 Sputum, Expectorated/Coughed Respiratory Culture - Preliminary Appears to be normal respiratory talha. Further studies to follow. Physical Exam Const alert, oriented x3 and no apparent distress General Appearance: cooperative HEENT normocephalic, head/scalp atraumatic and moist oral mucous membranes Eyes PERRL, EOMs intact bilaterally and conjunctivae normal Neck supple General: trachea midline Chest inspection of chest normal Chest: symmetrical chest wall rise; Negative for crepitus Resp normal respiratory effort Auscultation: diminished lung sounds; Negative for rales, rhonchi or wheezes Cardio regular rate, regular rhythm, S1 normal heart sound, S2 normal heart sound, no murmurs, no rub and no gallops GI normal to inspection, nondistended, normoactive bowel sounds Extremity no clubbing, cyanosis or edema Skin no rashes or lesions noted Neuro CN's II-XII intact bilaterally, moves all extremities and no focal motor deficits Psych cooperative and affect normal Charges/Coding Visit Charges Inpatient E&M: 43575 Subs Hosp L2
[2021-07-11] MEDS: Ibuprofen 400 MG Tablet PO ×2 (15:01→22:34)
[2021-07-11] MEDS: Sodium Chloride 0.65% 1 SPRAY SPRAY.BTL 2 SPRAY NASAL (15:03)
--- NOTE | 2021-07-11 16:04 | PCM.PN.HOSP ---
Subjective Subjective Follow-up on acute hypoxic respiratory failure/acute COVID-19 pneumonia: Patient was seen and examined. She is currently on 5 L of oxygen. Denied any fever or chills Objective Data Objective Data Vital Signs: Vital Signs Temp Pulse Resp BP Pulse Ox 98.7 F 64 18 105/62 96 07/11/21 14:47 07/11/21 14:47 07/11/21 14:47 07/11/21 14:47 07/11/21 14:47 Oxygen Flow Rate (L/min) 5 Oxygen Delivery Method Nasal Cannula Weight: 87.3 kg Body Mass Index (BMI) 30.1 Intake & Output: Intake and Output for Last 24 Hours 07/09/21 07/10/21 07/11/21 23:59 23:59 23:59 Intake Total 1399.5 / 1399.5 1915.25 / 1915.25 1135 / 1135 Output Total 300 / 300 Balance 1399.5 / 1399.5 1615.25 / 1615.25 1135 / 1135 Lab / Micro Data Result Diagrams: 07/11/21 10:53 07/11/21 10:53 Labs: Laboratory Results - last 24 hr 07/11/21 02:32: Vancomycin Trough 14.3 07/11/21 10:53: WBC 9.2, RBC 4.04 L, Hgb 11.8 L, Hct 34.0 L, MCV 84.2, MCH 29.2, MCHC 34.7, RDW Std Deviation 40.5, RDW Coeff of Thania 13.2, Plt Count 480 H, MPV 9.6, Immature Gran % (Auto) 2.600 H, Neut % (Auto) 79.3 H, Lymph % (Auto) 12.7 L, [place] % (Auto) 4.4, Eos % (Auto) 0.9, Baso % (Auto) 0.1, Absolute Neuts (auto) 7.3, Absolute Lymphs (auto) 1.17, Nucleated RBC % 0 07/11/21 10:53: Sodium 138, Potassium 3.8, Chloride 103, Carbon Dioxide 27.0, Anion Gap 8, BUN 14, Creatinine 0.58, Estim Creat Clear Calc 111.59, Est GFR (MDRD) Af Amer 139, Est GFR (MDRD) Non-Af 115, BUN/Creatinine Ratio 24.0 H, Glucose 109 H, Calcium 8.4 L, Total Bilirubin 0.80, AST 27, ALT 45, Alkaline Phosphatase 59, Total Protein 6.3 L, Albumin 2.1 L, Globulin 4.2, Albumin/Globulin Ratio 0.5 L Micro: Microbiology 07/09/21 10:48 Blood Culture (Wb) - Anticubital Right Blood Culture - Preliminary No growth in 48 hours. 07/09/21 10:40 Blood Culture (Wb) - Right Wrist Blood Culture - Preliminary No growth in 48 hours. 07/09/21 10:12 Sputum, Expectorated/Coughed Gram Stain - Final 07/09/21 10:12 Sputum, Expectorated/Coughed Respiratory Culture - Preliminary Appears to be normal respiratory talha. Further studies to follow. Physical Exam Narrative Physical exam: General: Alert, Oriented x3, Cooperative, No apparent distress, Well developed HEENT: Atraumatic Oral: Moist Mucosa, oral thrush on the tongue Neck: Supple Lungs: Clear to auscultation Cardiovascular: HS I+II, regular, no murmurs Abdomen: Bowel Sounds Present, Soft, Non Tender Extremities: No edema Assessment & Plan Assessment/Plan (1) Pneumonia due to 2019-nCoV: PLAN: 1. Acute hypoxic respiratory failure secondary to acute COVID-19 pneumonia Oxygen appears to have improved to 5 L of oxygen Continue to wean off oxygen 2. Acute COVID-19 pneumonia No fever seen, blood and sputum culture showed no growth Continue on Decadron and Baricitinib Pulmonology and ID consulted 3. Oral thrush, started on nystatin swish and swallow 4. Arrhythmia, concerning for SVTs, vitals have been stable Continue on metoprolol Charges/Coding Visit Charges Inpatient E&M: 78228 Subs Hosp L2
[2021-07-11] MEDS: Temazepam 15 MG Capsule PO (22:41)
[2021-07-12] VITALS (10 sets, daily range): BP systolic 102–125; BP diastolic 54–70; PULSE 49–74; RESP 18; TEMP 36.4–37.1; O2SAT 84–97
[2021-07-12] MEDS: 0.9% Saline Lock 10 ML Syringe IV ×2 (03:43→09:40)
[2021-07-12] MEDS: Acetaminophen 325 MG Tablet 650 MG PO ×3 (03:47→21:21)
[2021-07-12 06:50] LABS: Absolute Lymphocyte Count 1.47 X10^3/uL (0.83-4.51); Absolute Neutrophil Count 5.7 X10^3/uL (2.0-7.7); Basophil# 0.02 X10^3/uL; Basophil% 0.3 % (0-1); Eosinophil# 0.03 X10^3/uL; Eosinophils% 0.4 % (0-5); Hemoglobin 11.6 g/dL (12.0-15.0); Lymphocyte # 1.47 X10^3/ul (0.83-4.51); Lymphocyte % 18.6 % (19-41); Mean Corp Hgb Conc 33.1 g/dL (32-36); Mean Corpuscular Hgb 28.5 pg (27.0-32.0); Mean Platelet Vol. 10.1 fl (6.2-12.0); Monocyte# 0.42 X10^3/uL; Monocyte% 5.3 % (0-10); NRBC Flagged by Analyzer 0 % (0-5); Neutrophil # 5.74 X10^3/uL (2.7-7.7); Neutrophil % 72.7 % (47-70); Platelet Count 501 K/mm3 (150-450); RBC Distribution Width CV 13.2 % (11.6-14.6); RBC Distribution Width SD 41.4 fl (35.1-43.9); Red Blood Count 4.07 M/mm3 (4.2-5.4); White Blood Count 7.9 K/mm3 (4.4-11.0)
[2021-07-12 07:22] LABS: ALB/GLOB Ratio 0.6 RATIO (0.9-2.4); AST(SGOT) 25 U/L (15-37); Alanine Aminotransfer ALT/SGPT 44 U/L (13-56); Albumin, Serum 2.2 g/dL (3.2-5.0); Alkaline Phosphatase 56 U/L (45-117); Anion Gap 5 (5-15); BUN 16 mg/dL (7-18); BUN/Creat Ratio 26.5 RATIO (10-20); Calcium,Total 8.3 mg/dL (8.5-10.1); Chloride 103 mmol/L (98-107); EST Glomerular Filtration Rate 111 mL/min (>60); Est Glom Filt Rate - Afr Amer 134 mL/min (>60); Estimated Creatinine Clearance 107.87 ml/min; Glucose 85 mg/dL (74-106); Potassium 4.5 mmol/L (3.5-5.1); Protein, Total 6.2 g/dL (6.4-8.2); Sodium Level 134 mmol/L (136-145)
[2021-07-12] MEDS: Enoxaparin 40 MG/0.4 ML Syringe SC (09:25)
[2021-07-12] MEDS: dexAMETHasone 4 MG Tablet 6 MG PO (09:26)
[2021-07-12] MEDS: Aspirin 81 MG TAB.CHEW PO (09:26)
[2021-07-12] MEDS: guaiFENesin 1,200 MG Tablet 1200 MG PO ×2 (09:28→21:20)
[2021-07-12] MEDS: NYSTATIN 500,000 UNIT/5 ML UDC 500000 UNIT PO ×4 (09:28→21:20)
[2021-07-12] MEDS: Ibuprofen 400 MG Tablet PO ×2 (09:38→16:07)
--- NOTE | 2021-07-12 09:51 | PN.CC_ITS ---
Assessment & Plan Assessment/Plan (1) Hypoxemia: (2) Pneumonia due to 2019-nCoV: PLAN: RECOMMENDATIONS: 1. Completed Remdesivir. Continue Decadron (07/16/2021) and baricitinib (07/20/2021) as ordered. 2. Continue prophylactic Lovenox. 3. Wean supplemental oxygen to maintain saturations at or above 90%. 4. Awake prone positioning was encouraged. 5. Diuretics can utilized as needed to maintain euvolemic state. Challenge today 6. Walking oximetry IMPRESSIONS: 1. Acute hypoxemic respiratory failure secondary to COVID-19 pneumonia The patient presented to the hospital with worsening dyspnea and hypoxemia after having received an outpatient monoclonal antibody infusion on July 05. She is currently maintaining appropriate oxygen saturations on high flow nasal cannula. The patient has completed her treatment course of remdesivir. She will remain on Decadron and baricitinib as ordered. Due to the development of fevers, the patient was also placed on empiric antimicrobials. CTA chest was negative for PE. Therefore, we will continue prophylactic Lovenox. Continue to wean supplemental oxygen to maintain saturations at or above 90%. Encourage incentive spirometer use and mobilize patient as tolerated. Awake prone positioning was encouraged. Patient potentially able to be discharged if able to tolerate ambulation on 6 L or less. Patient should follow-up in our office in 4 to 6 weeks for PFT and to reevaluate need for supplemental oxygen. Extensive conversation with the patient about supplemental oxygen, vaccination and other concerns given hesitancy to go home. Subjective Subjective Patient overall feels subjectively improved compared to previous. Patient is very nervous about going home as she feels that she does not want to come back. Patient has had a productive cough. Nasal cannula demands continue to improve. Patient reports compliance with incentive spirometer and Acapella therapy Objective Data Objective Data Vital Signs: Vital Signs Temp Pulse Resp BP Pulse Ox 37.1 C 74 18 102/54 L 94 07/12/21 09:22 07/12/21 09:22 07/12/21 09:22 07/12/21 09:22 07/12/21 09:22 Oxygen Flow Rate (L/min) 3 Oxygen Delivery Method Nasal Cannula Weight: 87.3 kg Body Mass Index (BMI) 30.1 Intake & Output: Intake and Output for Last 24 Hours 07/10/21 07/11/21 07/12/21 23:59 23:59 23:59 Intake Total 1915.25 / 191.25 2069 535 / 535 Output Total 300 / 300 Balance 1615.25 / 1615.25 2069 535 / 535 Lab / Micro Data Result Diagrams: 07/12/21 05:26 07/12/21 05:26 Labs: Laboratory Results - last 24 hr 07/11/21 10:53: WBC 9.2, RBC 4.04 L, Hgb 11.8 L, Hct 34.0 L, MCV 84.2, MCH 29.2, MCHC 34.7, RDW Std Deviation 40.5, RDW Coeff of Thania 13.2, Plt Count 480 H, MPV 9.6, Immature Gran % (Auto) 2.600 H, Neut % (Auto) 79.3 H, Lymph % (Auto) 12.7 L , [place] % (Auto) 4.4, Eos % (Auto) 0.9, Baso % (Auto) 0.1, Absolute Neuts (auto) 7.3, Absolute Lymphs (auto) 1.17, Nucleated RBC % 0 07/11/21 10:53: Sodium 138, Potassium 3.8, Chloride 103, Carbon Dioxide 27.0, Anion Gap 8, BUN 14, Creatinine 0.58, Estim Creat Clear Calc 111.59, Est GFR (MDRD) Af Amer 139, Est GFR (MDRD) Non-Af 115, BUN/Creatinine Ratio 24.0 H, Glucose 109 H, Calcium 8.4 L, Total Bilirubin 0.80, AST 27, ALT 45, Alkaline Phosphatase 59, Total Protein 6.3 L, Albumin 2.1 L, Globulin 4.2, Albumin/Globulin Ratio 0.5 L 07/12/21 05:26: WBC 7.9, RBC 4.07 L, Hgb 11.6 L, Hct 35.0 L, MCV 86.0, MCH 28.5, MCHC 33.1, RDW Std Deviation 41.4, RDW Coeff of Thania 13.2, Plt Count 501 H, MPV 1 0.1, Immature Gran % (Auto) 2.700 H, Neut % (Auto) 72.7 H, Lymph % (Auto) 18.6 L , [place] % (Auto) 5.3, Eos % (Auto) 0.4, Baso % (Auto) 0.3, Absolute Neuts (auto) 5.7, Absolute Lymphs (auto) 1.47, Nucleated RBC % 0 07/12/21 05:26: Sodium 134 L, Potassium 4.5, Chloride 103, Carbon Dioxide 26.0, Anion Gap 5, BUN 16, Creatinine 0.60, Estim Creat Clear Calc 107.87, Est GFR (MDRD) Af Amer 134, Est GFR (MDRD) Non-Af 111, BUN/Creatinine Ratio 26.5 H, Glucose 85, Calcium 8.3 L, Total Bilirubin 1.00, AST 25, ALT 44, Alkaline Phosphatase 56, Total Protein 6.2 L, Albumin 2.2 L, Globulin 4.0, Albumin/Globulin Ratio 0.6 L Micro: Microbiology 07/09/21 10:12 Sputum, Expectorated/Coughed Gram Stain - Final 07/09/21 10:12 Sputum, Expectorated/Coughed Respiratory Culture - Final 07/09/21 10:48 Blood Culture (Wb) - Anticubital Right Blood Culture - Preliminary No growth in 48 hours. 07/09/21 10:40 Blood Culture (Wb) - Right Wrist Blood Culture - Preliminary No growth in 48 hours. Physical Exam Const alert, oriented x3 and no apparent distress General Appearance: cooperative HEENT normocephalic, head/scalp atraumatic and moist oral mucous membranes Eyes PERRL, EOMs intact bilaterally and conjunctivae normal Neck supple General: trachea midline Chest inspection of chest normal Chest: symmetrical chest wall rise; Negative for crepitus Resp normal respiratory effort Auscultation: diminished lung sounds; Negative for rales, rhonchi or wheezes Cardio regular rate, regular rhythm, S1 normal heart sound, S2 normal heart sound, no murmurs, no rub and no gallops GI normal to inspection, nondistended, normoactive bowel sounds Extremity no clubbing, cyanosis or edema Skin no rashes or lesions noted Neuro CN's II-XII intact bilaterally, moves all extremities and no focal motor d eficits Psych cooperative and affect normal Charges/Coding Visit Charges Inpatient E&M: 62485 Subs Hosp L2
[2021-07-12] MEDS: Metoprolol(XL)Succ 25 MG Tablet 12.5 MG PO (10:15)
--- NOTE | 2021-07-12 13:05 | PN.HOSP_ITS ---
Subjective Subjective Follow-up on acute hypoxic respiratory failure/acute COVID-19 pneumonia: Patient was seen and examined. Her oxygen levels have improved to 3 L. She however needed more than 6 L on exertion. She complains of nausea and insomnia. Objective Data Objective Data Vital Signs: Vital Signs Temp Pulse Resp BP Pulse Ox 98.7 F 74 18 124/70 H 92 07/12/21 09:22 07/12/21 10:15 07/12/21 09:22 07/12/21 10:15 07/12/21 10:12 Oxygen Flow Rate (L/min) [ 6 AMBULATING with Oxygen #3] Oxygen Flow Rate (L/min) [ 4 AMBULATING with Oxygen #2] Oxygen Flow Rate (L/min) [ 2 AMBULATING with Oxygen #1] Oxygen Flow Rate (L/min) [ 0 AMBULATING on Room Air] Oxygen Flow Rate (L/min) [At 0 REST on Room Air] Oxygen Flow Rate (L/min) 4 Oxygen Delivery Method Nasal Cannula Weight: 87.3 kg Body Mass Index (BMI) 30.1 Intake & Output: Intake and Output for Last 24 Hours 07/10/21 07/11/21 07/12/21 23:59 23:59 23:59 Intake Total 1915.25 / 1915.25 2069 1285 / 1285 Output Total 300 / 300 Balance 1615.25 / 1615.25 2069 1285 / 1285 Lab / Micro Data Result Diagrams: 07/12/21 05:26 07/12/21 05:26 Labs: Laboratory Results - last 24 hr 07/12/21 05:26: WBC 7.9, RBC 4.07 L, Hgb 11.6 L, Hct 35.0 L, MCV 86.0, MCH 28.5, MCHC 33.1, RDW Std Deviation 41.4, RDW Coeff of Thania 13.2, Plt Count 501 H, MPV 10.1, Immature Gran % (Auto) 2.700 H, Neut % (Auto) 72.7 H, Lymph % (Auto) 18.6 L, [place] % (Auto) 5.3, Eos % (Auto) 0.4, Baso % (Auto) 0.3, Absolute Neuts (auto) 5.7, Absolute Lymphs (auto) 1.47, Nucleated RBC % 0 07/12/21 05:26: Sodium 134 L, Potassium 4.5, Chloride 103, Carbon Dioxide 26.0, Anion Gap 5, BUN 16, Creatinine 0.60, Estim Creat Clear Calc 107.87, Est GFR (MDRD) Af Amer 134, Est GFR (MDRD) Non-Af 111, BUN/Creatinine Ratio 26.5 H, Glucose 85, Calcium 8.3 L, Total Bilirubin 1.00, AST 25, ALT 44, Alkaline Phosphatase 56, Total Protein 6.2 L, Albumin 2.2 L, Globulin 4.0, Albumin /Globulin Ratio 0.6 L Micro: Microbiology 07/09/21 10:12 Sputum, Expectorated/Coughed Gram Stain - Final 07/09/21 10:12 Sputum, Expectorated/Coughed Respiratory Culture - Final 07/09/21 10:48 Blood Culture (Wb) - Anticubital Right Blood Culture - Preliminary No growth in 48 hours. 07/09/21 10:40 Blood Culture (Wb) - Right Wrist Blood Culture - Preliminary No growth in 48 hours. Physical Exam Narrative Physical exam: General: Alert, Oriented x3, Cooperative, No apparent distress, Well developed HEENT: Atraumatic Oral: Moist Mucosa, oral thrush on the tongue Neck: Supple Lungs: Clear to auscultation Cardiovascular: HS I+II, regular, no murmurs Abdomen: Bowel Sounds Present, Soft, Non Tender Extremities: No edema Assessment & Plan Assessment/Plan (1) Pneumonia due to 2019-nCoV: PLAN: 1. Acute hypoxic respiratory failure secondary to acute COVID-19 pneumonia, improved Currently on 3 L of oxygen Continue to wean off oxygen 2. Acute COVID-19 pneumonia No fever seen, blood and sputum culture showed no growth Continue on Decadron and Baricitinib Pulmonology and ID consulted 3. Oral thrush, started on nystatin swish and swallow 4. Arrhythmia, concerning for SVTs, vitals have been stable Continue on metoprolol Charges/Coding Visit Charges Inpatient E&M: 11357 Subs Hosp L2
[2021-07-12] MEDS: Magnesium Hydroxide 30 ML UDC PO (13:26)
[2021-07-12] MEDS: MELATONIN 3 MG TABLET PO (21:20)
[2021-07-13] VITALS (8 sets, daily range): BP systolic 101–124; BP diastolic 56–71; PULSE 50–70; RESP 16–18; TEMP 36.6–37.1; O2SAT 85–97
[2021-07-13] MEDS: Ibuprofen 400 MG Tablet PO ×3 (01:08→18:12)
[2021-07-13] MEDS: Acetaminophen 325 MG Tablet 650 MG PO ×3 (05:16→20:52)
[2021-07-13 07:05] LABS: Absolute Lymphocyte Count 1.62 X10^3/uL (0.83-4.51); Absolute Neutrophil Count 5.5 X10^3/uL (2.0-7.7); Basophil# 0.01 X10^3/uL; Basophil% 0.1 % (0-1); Eosinophil# 0.08 X10^3/uL; Hematocrit 33.5 % (37-47); Hemoglobin 11.4 g/dL (12.0-15.0); Lymphocyte # 1.62 X10^3/ul (0.83-4.51); Lymphocyte % 20.2 % (19-41); Mean Corpuscular Hgb 28.6 pg (27.0-32.0); Mean Platelet Vol. 9.5 fl (6.2-12.0); Monocyte# 0.65 X10^3/uL; Monocyte% 8.1 % (0-10); NRBC Flagged by Analyzer 0 % (0-5); Neutrophil # 5.53 X10^3/uL (2.7-7.7); Neutrophil % 68.9 % (47-70); Platelet Count 504 K/mm3 (150-450); RBC Distribution Width CV 12.8 % (11.6-14.6); RBC Distribution Width SD 39.6 fl (35.1-43.9); Red Blood Count 3.99 M/mm3 (4.2-5.4)
[2021-07-13 07:31] LABS: ALB/GLOB Ratio 0.6 RATIO (0.9-2.4); AST(SGOT) 16 U/L (15-37); Alanine Aminotransfer ALT/SGPT 44 U/L (13-56); Albumin, Serum 2.3 g/dL (3.2-5.0); Alkaline Phosphatase 56 U/L (45-117); Anion Gap 6 (5-15); BUN 13 mg/dL (7-18); BUN/Creat Ratio 20.9 RATIO (10-20); Calcium,Total 8.2 mg/dL (8.5-10.1); Chloride 103 mmol/L (98-107); Creatinine, Serum 0.62 mg/dL (0.55-1.02); EST Glomerular Filtration Rate 107 mL/min (>60); Est Glom Filt Rate - Afr Amer 129 mL/min (>60); Estimated Creatinine Clearance 104.39 ml/min; Globulin 3.8 g/dL (2.2-4.2); Glucose 106 mg/dL (74-106); Potassium 4.1 mmol/L (3.5-5.1); Protein, Total 6.1 g/dL (6.4-8.2); Sodium Level 136 mmol/L (136-145)
--- NOTE | 2021-07-13 08:53 | PCM.PN.INT ---
Assessment & Plan Assessment/Plan (1) Hypoxemia: (2) Pneumonia due to 2019-nCoV: PLAN: RECOMMENDATIONS: 1. Completed Remdesivir. Continue Decadron (07/16/2021) and baricitinib (07/20/2021) as ordered. 2. Baricitinib can be discontinued on discharge 3. Wean supplemental oxygen to maintain saturations at or above 90%. 4. Awake prone positioning was encouraged. 5. Diuretics can utilized as needed to maintain euvolemic state. 6. Walking oximetry with potential discharge later today IMPRESSIONS: 1. Acute hypoxemic respiratory failure secondary to COVID-19 pneumonia The patient presented to the hospital with worsening dyspnea and hypoxemia after having received an outpatient monoclonal antibody infusion on July 05. She is currently maintaining appropriate oxygen saturations on high flow nasal cannula. The patient has completed her treatment course of remdesivir. She will remain on Decadron and baricitinib as ordered. Due to the development of fevers, the patient was also placed on empiric antimicrobials. CTA chest was negative for PE. Therefore, we will continue prophylactic Lovenox. Continue to wean supplemental oxygen to maintain saturations at or above 90%. Encourage incentive spirometer use and mobilize patient as tolerated. Awake prone positioning was encouraged. Patient potentially able to be discharged if able to tolerate ambulation on 6 L or less. Patient should follow-up in our office in 4 to 6 weeks for PFT and to reevaluate need for supplemental oxygen. Extensive conversation with the patient about supplemental oxygen, vaccination and other concerns given hesitancy to go home. Subjective Subjective Patient did well overnight. No acute issues were reported. Patient did have a walking oximetry yesterday, but desaturated on 6 L nasal cannula. Patient overall feels subjectively improved compared to yesterday. Patient is not reporting any chest pain. Patient does have a cough that is intermittently productive. Objective Data Objective Data Vital Signs: Vital Signs Temp Pulse Resp BP Pulse Ox 36.6 C 50 L 18 116/71 97 07/13/21 05:15 07/13/21 05:15 07/13/21 05:15 07/13/21 05:15 07/13/21 05:15 Oxygen Flow Rate (L/min) [ 6 AMBULATING with Oxygen #3] Oxygen Flow Rate (L/min) [ 4 AMBULATING with Oxygen #2] Oxygen Flow Rate (L/min) [ 2 AMBULATING with Oxygen #1] Oxygen Flow Rate (L/min) [ 0 AMBULATING on Room Air] Oxygen Flow Rate (L/min) [At 0 REST on Room Air] Oxygen Flow Rate (L/min) 3 Oxygen Delivery Method High Flow Weight: 87.3 kg Body Mass Index (BMI) 30.1 Intake & Output: Intake and Output for Last 24 Hours 07/11/21 07/12/21 07/13/21 23:59 23:59 23:59 Intake Total 2069 1735 / 1735 Balance 2069 1735 / 1735 Lab / Micro Data Result Diagrams: 07/13/21 06:50 07/13/21 06:50 Labs: Laboratory Results - last 24 hr 07/13/21 06:50: WBC 8.0, RBC 3.99 L, Hgb 11.4 L, Hct 33.5 L, MCV 84.0, MCH 28.6, MCHC 34.0, RDW Std Deviation 39.6, RDW Coeff of Thania 12.8, Plt Count 504 H, MPV 9.5, Immature Gran % (Auto) 1.700 H, Neut % (Auto) 68.9, Lymph % (Auto) 20.2, [place] % (Auto) 8.1, Eos % (Auto) 1.0, Baso % (Auto) 0.1, Absolute Neuts (auto) 5.5, Absolute Lymphs (auto) 1.62, Nucleated RBC % 0 07/13/21 06:50: Sodium 136, Potassium 4.1, Chloride 103, Carbon Dioxide 27.0, Anion Gap 6, BUN 13, Creatinine 0.62, Estim Creat Clear Calc 104.39, Est GFR (MDRD) Af Amer 129, Est GFR (MDRD) Non-Af 107, BUN/Creatinine Ratio 20.9 H, Glucose 106, Calcium 8.2 L, Total Bilirubin 0.80, AST 16, ALT 44, Alkaline Phosphatase 56, Total Protein 6.1 L, Albumin 2.3 L, Globulin 3.8, Albumin/Globulin Ratio 0.6 L Micro: Microbiology 07/09/21 10:12 Sputum, Expectorated/Coughed Gram Stain - Final 07/09/21 10:12 Sputum, Expectorated/Coughed Respiratory Culture - Final 07/09/21 10:48 Blood Culture (Wb) - Anticubital Right Blood Culture - Preliminary No growth in 48 hours. 07/09/21 10:40 Blood Culture (Wb) - Right Wrist Blood Culture - Preliminary No growth in 48 hours. Physical Exam Const alert, oriented x3 and no apparent distress General Appearance: cooperative HEENT normocephalic, head/scalp atraumatic and moist oral mucous membranes Eyes PERRL, EOMs intact bilaterally and conjunctivae normal Neck supple General: trachea midline Chest inspection of chest normal Chest: symmetrical chest wall rise; Negative for crepitus Resp normal respiratory effort Auscultation: diminished lung sounds; Negative for rales, rhonchi or wheezes Cardio regular rate, regular rhythm, S1 normal heart sound, S2 normal heart sound, no murmurs, no rub and no gallops GI normal to inspection, nondistended, normoactive bowel sounds Extremity no clubbing, cyanosis or edema Skin no rashes or lesions noted Neuro CN's II-XII intact bilaterally, moves all extremities and no focal motor deficits Psych cooperative and affect normal Charges/Coding Visit Charges Inpatient E&M: 58805 Subs Hosp L2
[2021-07-13] MEDS: Aspirin 81 MG TAB.CHEW PO (10:05)
[2021-07-13] MEDS: Metoprolol(XL)Succ 25 MG Tablet 12.5 MG PO (10:05)
[2021-07-13] MEDS: guaiFENesin 1,200 MG Tablet 1200 MG PO ×2 (10:05→20:52)
[2021-07-13] MEDS: dexAMETHasone 4 MG Tablet 6 MG PO (10:06)
[2021-07-13] MEDS: Enoxaparin 40 MG/0.4 ML Syringe SC (10:07)
[2021-07-13] MEDS: NYSTATIN 500,000 UNIT/5 ML UDC 500000 UNIT PO ×4 (10:07→20:52)
--- NOTE | 2021-07-13 12:01 | PN.HOSP_ITS ---
Subjective Subjective Follow-up on acute hypoxic respiratory failure/acute COVID-19 pneumonia: Patient was seen and examined. Patient was evaluated for oxygen for discharge. She still required more than 6 L on exertion. No acute events overnight Objective Data Objective Data Vital Signs: Vital Signs Temp Pulse Resp BP Pulse Ox 98.3 F 70 18 124/68 H 88 07/13/21 09:00 07/13/21 10:05 07/13/21 09:00 07/13/21 09:00 07/13/21 10:22 Oxygen Flow Rate (L/min) [At 4 REST with Oxygen] Oxygen Flow Rate (L/min) [ 6 AMBULATING with Oxygen #3] Oxygen Flow Rate (L/min) [ 4 AMBULATING with Oxygen #2] Oxygen Flow Rate (L/min) [ 2 AMBULATING with Oxygen #1] Oxygen Flow Rate (L/min) [ 0 AMBULATING on Room Air] Oxygen Flow Rate (L/min) [At 0 REST on Room Air] Oxygen Flow Rate (L/min) 3.5 Oxygen Delivery Method Nasal Cannula Weight: 87.3 kg Body Mass Index (BMI) 30.1 Intake & Output: Intake and Output for Last 24 Hours 07/11/21 07/12/21 07/13/21 23:59 23:59 23:59 Intake Total 2069 1735 / 1735 Balance 2069 1735 / 1735 Lab / Micro Data Result Diagrams: 07/13/21 06:50 07/13/21 06:50 Labs: Laboratory Results - last 24 hr 07/13/21 06:50: WBC 8.0, RBC 3.99 L, Hgb 11.4 L, Hct 33.5 L, MCV 84.0, MCH 28.6, MCHC 34.0, RDW Std Deviation 39.6, RDW Coeff of Thania 12.8, Plt Count 504 H, MPV 9.5, Immature Gran % (Auto) 1.700 H, Neut % (Auto) 68.9, Lymph % (Auto) 20.2, [place] % (Auto) 8.1, Eos % (Auto) 1.0, Baso % (Auto) 0.1, Absolute Neuts (auto) 5.5, Absolute Lymphs (auto) 1.62, Nucleated RBC % 0 07/13/21 06:50: Sodium 136, Potassium 4.1, Chloride 103, Carbon Dioxide 27.0, Anion Gap 6, BUN 13, Creatinine 0.62, Estim Creat Clear Calc 104.39, Est GFR (MDRD) Af Amer 129, Est GFR (MDRD) Non-Af 107, BUN/Creatinine Ratio 20.9 H, Glucose 106, Calcium 8.2 L, Total Bilirubin 0.80, AST 16, ALT 44, Alkaline Phosphatase 56, Total Protein 6.1 L, Albumin 2.3 L, Globulin 3.8, Albumin/Glob ulin Ratio 0.6 L Micro: Microbiology 07/09/21 10:12 Sputum, Expectorated/Coughed Gram Stain - Final 07/09/21 10:12 Sputum, Expectorated/Coughed Respiratory Culture - Final 07/09/21 10:48 Blood Culture (Wb) - Anticubital Right Blood Culture - Preliminary No growth in 48 hours. 07/09/21 10:40 Blood Culture (Wb) - Right Wrist Blood Culture - Preliminary No growth in 48 hours. Physical Exam Narrative Physical exam: General: Alert, Oriented x3, Cooperative, comfortable, on 3L oxygen HEENT: Atraumatic Oral: Moist Mucosa, oral thrush on the tongue Neck: Supple Lungs:Diminished to auscultation Cardiovascular: HS I+II, regular, no murmurs Abdomen: Bowel Sounds Present, Soft, Non Tender Extremities: No edema Assessment & Plan Assessment/Plan (1) Pneumonia due to 2019-nCoV: PLAN: 1. Acute hypoxic respiratory failure secondary to acute COVID-19 pneumonia, improved Remains on 3 L of oxygen but needed more oxygen on exertion Continue to wean off oxygen 2. Acute COVID-19 pneumonia Blood and sputum culture showed no growth Continue on Decadron and Baricitinib Pulmonology and ID consulted 3. Oral thrush, on nystatin swish and swallow 4. Arrhythmia, concerning for SVTs, vitals have been stable Continue on metoprolol Charges/Coding Visit Charges Inpatient E&M: 65753 Subs Hosp L2
[2021-07-13] MEDS: MELATONIN 10 MG TABLET 5 MG PO (22:53)
[2021-07-14] VITALS (10 sets, daily range): BP systolic 101–133; BP diastolic 58–76; PULSE 56–68; RESP 16–18; TEMP 36.3–37; O2SAT 87–97
[2021-07-14] MEDS: Ibuprofen 400 MG Tablet PO ×2 (01:04→08:29)
[2021-07-14] MEDS: Acetaminophen 325 MG Tablet 650 MG PO (05:44)
--- NOTE | 2021-07-14 05:46 | NURSING ---
pt is requesting to have her walking pulse ox after breakfast today 12-23. pt feels she would do better if it was later and not first thing when she wakes up this AM.
[2021-07-14 06:42] LABS: Absolute Lymphocyte Count 1.47 X10^3/uL (0.83-4.51); Absolute Neutrophil Count 7.4 X10^3/uL (2.0-7.7); Basophil# 0.01 X10^3/uL; Basophil% 0.1 % (0-1); Eosinophil# 0.02 X10^3/uL; Eosinophils% 0.2 % (0-5); Hematocrit 34.3 % (37-47); Hemoglobin 11.7 g/dL (12.0-15.0); Lymphocyte # 1.47 X10^3/ul (0.83-4.51); Mean Corp Hgb Conc 34.1 g/dL (32-36); Mean Corpuscular Volume 85.1 fL (81-99); Mean Platelet Vol. 9.9 fl (6.2-12.0); Monocyte# 0.75 X10^3/uL; Monocyte% 7.7 % (0-10); NRBC Flagged by Analyzer 0 % (0-5); Neutrophil # 7.42 X10^3/uL (2.7-7.7); Neutrophil % 75.8 % (47-70); Platelet Count 504 K/mm3 (150-450); RBC Distribution Width SD 40.4 fl (35.1-43.9); Red Blood Count 4.03 M/mm3 (4.2-5.4); White Blood Count 9.8 K/mm3 (4.4-11.0)
[2021-07-14 07:11] LABS: ALB/GLOB Ratio 0.6 RATIO (0.9-2.4); AST(SGOT) 17 U/L (15-37); Alanine Aminotransfer ALT/SGPT 42 U/L (13-56); Albumin, Serum 2.4 g/dL (3.2-5.0); Alkaline Phosphatase 54 U/L (45-117); Anion Gap 9 (5-15); BUN 17 mg/dL (7-18); BUN/Creat Ratio 29.5 RATIO (10-20); Calcium,Total 8.5 mg/dL (8.5-10.1); Chloride 103 mmol/L (98-107); Creatinine, Serum 0.58 mg/dL (0.55-1.02); EST Glomerular Filtration Rate 117 mL/min (>60); Est Glom Filt Rate - Afr Amer 142 mL/min (>60); Estimated Creatinine Clearance 111.59 ml/min; Globulin 3.8 g/dL (2.2-4.2); Glucose 107 mg/dL (74-106); Potassium 4.3 mmol/L (3.5-5.1); Protein, Total 6.2 g/dL (6.4-8.2); Sodium Level 138 mmol/L (136-145)
[2021-07-14] MEDS: dexAMETHasone 4 MG Tablet 6 MG PO (08:28)
[2021-07-14] MEDS: Aspirin 81 MG TAB.CHEW PO (08:28)
[2021-07-14] MEDS: NYSTATIN 500,000 UNIT/5 ML UDC 500000 UNIT PO (08:29)
[2021-07-14] MEDS: guaiFENesin 1,200 MG Tablet 1200 MG PO (08:29)
[2021-07-14] MEDS: Enoxaparin 40 MG/0.4 ML Syringe SC (08:29)
[2021-07-14] MEDS: Furosemide 20 MG/2 ML VIAL IV (08:29)
--- NOTE | 2021-07-14 08:58 | PN.CC_ITS ---
Assessment & Plan Assessment/Plan (1) Hypoxemia: (2) Pneumonia due to 2019-nCoV: PLAN: RECOMMENDATIONS: 1. Completed Remdesivir. Continue Decadron (07/16/2021) and baricitinib (07/20/2021) as ordered. 2. Baricitinib can be discontinued on discharge 3. Wean supplemental oxygen to maintain saturations at or above 90%. 4. Awake prone positioning was encouraged. 5. Diuretics can utilized as needed to maintain euvolemic state. Challenge today. 6. Walking oximetry with potential discharge later today 7. Hemodynamically stable on minimal nasal cannula oxygen. Will sign off from a pulmonary perspective. Plan as below. IMPRESSIONS: 1. Acute hypoxemic respiratory failure secondary to COVID-19 pneumonia The patient presented to the hospital with worsening dyspnea and hypoxemia after having received an outpatient monoclonal antibody infusion on July 05. She is currently maintaining appropriate oxygen saturations on high flow nasal cannula. The patient has completed her treatment course of remdesivir. She will remain on Decadron and baricitinib as ordered. Due to the development of fevers, the patient was also placed on empiric antimicrobials. CTA chest was negative for PE. Therefore, we will continue prophylactic Lovenox. Continue to wean supplemental oxygen to maintain saturations at or above 90%. Encourage incentive spirometer use and mobilize patient as tolerated. Awake prone positioning was encouraged. Patient potentially able to be discharged if able to tolerate ambulation on 6 L or less. Patient should follow-up in our office in 4 to 6 weeks for PFT and to reevaluate need for supplemental oxygen. Extensive conversation with the patient about supplemental oxygen, vaccination and other concerns given hesitancy to go home. Subjective Subjective Patient subjectively improved. Patient states that she has been walking around the room in the evening and was not desaturating on 2 L nasal cannula. Patient believes that today is the day to go home. Objective Data Objective Data Vital Signs: Vital Signs Temp Pulse Resp BP Pulse Ox 36.6 C 56 L 16 120/71 92 07/14/21 08:25 07/14/21 08:25 07/14/21 08:25 07/14/21 08:25 07/14/21 08:25 Oxygen Flow Rate (L/min) [At 4 REST with Oxygen] Oxygen Flow Rate (L/min) [ 6 AMBULATING with Oxygen #3] Oxygen Flow Rate (L/min) [ 4 AMBULATING with Oxygen #2] Oxygen Flow Rate (L/min) [ 2 AMBULATING with Oxygen #1] Oxygen Flow Rate (L/min) [ 0 AMBULATING on Room Air] Oxygen Flow Rate (L/min) [At 0 REST on Room Air] Oxygen Flow Rate (L/min) 2 Oxygen Delivery Method Nasal Cannula Weight: 87.3 kg Body Mass Index (BMI) 30.1 Intake & Output: Intake and Output for Last 24 Hours 07/12/21 07/13/21 07/14/21 23:59 23:59 23:59 Intake Total 1735 / 1735 0 / 0 Balance 1735 / 1735 0 / 0 Lab / Micro Data Result Diagrams: 07/14/21 05:48 07/14/21 05:48 Labs: Laboratory Results - last 24 hr 07/14/21 05:48: WBC 9.8, RBC 4.03 L, Hgb 11.7 L, Hct 34.3 L, MCV 85.1, MCH 29.0, MCHC 34.1, RDW Std Deviation 40.4, RDW Coeff of Thania 13.0, Plt Count 504 H, MPV 9.9, Immature Gran % (Auto) 1.200 H, Neut % (Auto) 75.8 H, Lymph % (Auto) 15.0 L , [place] % (Auto) 7.7, Eos % (Auto) 0.2, Baso % (Auto) 0.1, Absolute Neuts (auto) 7.4, Absolute Lymphs (auto) 1.47, Nucleated RBC % 0 07/14/21 05:48: Sodium 138, Potassium 4.3, Chloride 103, Carbon Dioxide 26.0, Anion Gap 9, BUN 17, Creatinine 0.58, Estim Creat Clear Calc 111.59, Est GFR (MDRD) Af Amer 142, Est GFR (MDRD) Non-Af 117, BUN/Creatinine Ratio 29.5 H, Glucose 107 H, Calcium 8.5, Total Bilirubin 0.60, AST 17, ALT 42, Alkaline Phosphatase 54, Total Protein 6.2 L, Albumin 2.4 L, Globulin 3.8, Albumin/Globulin Ratio 0.6 L Micro: Microbiology 07/09/21 10:12 Sputum, Expectorated/Coughed Gram Stain - Final 07/09/21 10:12 Sputum, Expectorated/Coughed Respiratory Culture - Final 07/09/21 10:48 Blood Culture (Wb) - Anticubital Right Blood Culture - Preliminary No growth in 48 hours. 07/09/21 10:40 Blood Culture (Wb) - Right Wrist Blood Culture - Preliminary No growth in 48 hours. Physical Exam Const alert, oriented x3 and no apparent distress General Appearance: cooperative HEENT normocephalic, head/scalp atraumatic and moist oral mucous membranes Eyes PERRL, EOMs intact bilaterally and conjunctivae normal Neck supple General: trachea midline Chest inspection of chest normal Chest: symmetrical chest wall rise; Negative for crepitus Resp normal respiratory effort Auscultation: diminished lung sounds; Negative for rales, rhonchi or wheezes Cardio regular rate, regular rhythm, S1 normal heart sound, S2 normal heart sound, no murmurs, no rub and no gallops GI normal to inspection, nondistended, normoactive bowel sounds Extremity no clubbing, cyanosis or edema Skin no rashes or lesions noted Neuro CN's II-XII intact bilaterally, moves all extremities and no focal motor deficits Psych cooperative and affect normal Charges/Coding Visit Charges Inpatient E&M: 29834 Subs Hosp L2
--- NOTE | 2021-07-14 10:03 | PCM.DC.SUM ---
Providers Date of Admission: 07/05/21 Date of Discharge: 07/14/21 Primary Care Physician: Dr. Mitch Cabral, DO Consultations 07/06/21 08:33 Consult: Infectious Disease Routine Consulting Provider: Pipo Escamilla Reason for Consult: Covid-19 EMERGENT Consult: No Notified: Yes Date Notified: 07/06/21 Time Notified: 10:32 Method of Notification: Text Consult: [employer] / Pulmonary Medicine Routine Consulting Provider: Boris Montoya Reason for Consult: Covid-19 EMERGENT Consult: No Notified: Yes Date Notified: 07/06/21 Time Notified: 10:34 Method of Notification: Text Reason For Visit: COVID 19 PNEUMONIA Diagnosis Discharge Diagnosis (1) Hypoxemia: Status: Acute Code(s): R09.02 - Hypoxemia (2) Pneumonia due to 2019-nCoV: Status: Acute Code(s): U07.1 - COVID-19; J12.82 - Pneumonia due to coronavirus disease 2019 Medications at Discharge Home Medications Aspir-81 81 mg PO/SL DAILY 07/03/21 metoprolol succinate 12.5 mg PO DAILY 07/03/21 melatonin 5 mg PO QHS 07/13/21 dexamethasone 6 mg PO DAILY 2 Days #2 tab 07/14/21 guaifenesin [Mucus Relief ER] 1,200 mg PO BID 7 Days #14 tab 07/14/21 nystatin 500,000 unit PO 4X/DAY 5 Days #100 ml 07/14/21 Hospital Course Operations None Procedures None Summary of Care Provided Minutes Spent on Discharge: 40 Hospital Course: 50-year-old female who is unvaccinated against coronavirus, who had monoclonal antibody infusion on 07/05/21 comes in with progressive shortness of breath. Patient was tested positive for Covid on July 03, 2021. She was found to be hypoxic in the emergency room with oxygen saturation of 84%. Her D-dimer was elevated but CTA of the chest was negative for acute PE. It showed diffuse bilateral groundglass infiltrates. Patient was admitted to the hospital, managed on remdesivir, Lovenox and Decadron. She worsened and required use of high flow oxygen/Airvo. Infectious disease and pulmonology were consulted. Patient was also started on baricitinib. She finished remdesivir during his hospital stay. Patient continued to improve and was discharged on 2 L of oxygen at rest and 3 L on exertion. She will complete 10 days of dexamethasone. She had evidence of oral thrush during this hospital stay that required use of nystatin swish and swallow. Patient will follow up with her primary care doctor and pulmonology in the outpatient. Physical Exam Narrative Physical exam: General: Alert, Oriented x3, Cooperative, comfortable, on 3L oxygen HEENT: Atraumatic Oral: Moist Mucosa, oral thrush on the tongue Neck: Supple Lungs:Diminished to auscultation Cardiovascular: HS I+II, regular, no murmurs Abdomen: Bowel Sounds Present, Soft, Non Tender Extremities: No edema Weight / BMI Weight Weight: 87.3 kg Body Mass Index (BMI) 30.1 ABG / Lab / Microbiology Data Result Diagrams: 07/14/21 05:48 07/14/21 05:48 Laboratory: Laboratory Results - last 24 hr 07/14/21 05:48: WBC 9.8, RBC 4.03 L, Hgb 11.7 L, Hct 34.3 L, MCV 85.1, MCH 29.0, MCHC 34.1, RDW Std Deviation 40.4, RDW Coeff of Thania 13.0, Plt Count 504 H, MPV 9.9, Immature Gran % (Auto) 1.200 H, Neut % (Auto) 75.8 H, Lymph % (Auto) 15.0 L, [place] % (Auto) 7.7, Eos % (Auto) 0.2, Baso % (Auto) 0.1, Absolute Neuts (auto) 7.4, Absolute Lymphs (auto) 1.47, Nucleated RBC % 0 07/14/21 05:48: Sodium 138, Potassium 4.3, Chloride 103, Carbon Dioxide 26.0, Anion Gap 9, BUN 17, Creatinine 0.58, Estim Creat Clear Calc 111.59, Est GFR (MDRD) Af Amer 142, Est GFR (MDRD) Non-Af 117, BUN/Creatinine Ratio 29.5 H, Glucose 107 H, Calcium 8.5, Total Bilirubin 0.60, AST 17, ALT 42, Alkaline Phosphatase 54, Total Protein 6.2 L, Albumin 2.4 L, Globulin 3.8, Albumin/Globulin Ratio 0.6 L Microbiology: Microbiology 07/09/21 10:12 Sputum, Expectorated/Coughed Gram Stain - Final 07/09/21 10:12 Sputum, Expectorated/Coughed Respiratory Culture - Final 07/09/21 10:48 Blood Culture (Wb) - Anticubital Right Blood Culture - Preliminary No growth in 48 hours. 07/09/21 10:40 Blood Culture (Wb) - Right Wrist Blood Culture - Preliminary No growth in 48 hours. D/C Instructions Discharge Diet: 2000 mg Sodium Diet Weight Bearing Status: Weight bearing as tolerated Meaningful Use Info Meaningful Use Diagnoses (Choose all that apply): None applicable Discharge Plan Admission Admit Date/Time: 07/05/21 21:05 Primary Reason for Your Visit: Acute hypoxic respiratory failure Attending Provider: Thuy Hodgson Primary Care Provider: Mitch Cabral Consulting Providers: Pipo Escamilla ; Boris Montoya Instructions Additional Instructions / Restrictions: You are being discharged with oxygen. Continue to use your oxygen all the time. Continue to use your incentive spirometer. Continue to remain active and eat healthy. Let your doctor know if you develop fever >101.3F or have progressive worsening shortness of breath. Follow-up with your primary care doctor and also with pulmonology to have your continued oxygen use reevaluated. Be careful of going near open flames whilst on oxygen. Complete your Decadron as prescribed. Continue to use your inhaler as needed for shortness of breath. Continue to quarantine for 20 days total from the start of your symptoms. Discharge Orders/Prescriptions Prescriptions: New nystatin 100,000 unit/mL Suspension 500,000 unit PO 4X/DAY 5 Days Qty: 100 RF: 0 Mucus Relief ER 1,200 mg Tablet Extended Release 12hr 1,200 mg PO BID 7 Days Qty: 14 RF: 0 dexamethasone 6 mg tablet 6 mg PO DAILY 2 Days Qty: 2 RF: 0 Continued Aspir-81 81 mg PO/SL DAILY RF: 0 metoprolol succinate 25 mg tablet extended release 24 hr 12.5 mg PO DAILY RF: 0 melatonin 5 mg Tablet 5 mg PO QHS RF: 0 Referrals / Follow Up: Boris Montoya DO [STAFF PHYSICIAN] - Within 2 Weeks Mitch Cabral DO [Primary Care Provider] - Within 2 Weeks Disposition Disposition (needs filled in before D/C Order can be placed): Home, Self Care Charges/Coding Visit Charges Inpatient E&M: 83665 Disch Hosp
--- NOTE | 2021-07-14 10:04 | CASEMGMT ---
Addendum entered by Mercedes Rodriguez 07/14/21 13:31: Noted [employer] to be closed today, referral called in to after hours phone number. Original Note: Pt qualifies for home O2, referral faxed to [facility] [place] and email sent to Melissa that portable tank taken from stock and to make aware of referral.
[2021-07-14] MEDS: Albuterol 2.5 MG/3 ML VIAL.NEB. INHALATION (10:33)
--- NOTE | 2021-07-14 10:36 | CPS ---
one time albuterol tx per for chest tightness
== END 2021-07-14 13:05 | disposition home or self-care (01) | DRG 177 ==
LOC: ED 20:08 → MS3 21:56
PROVIDERS: Internal Medicine; Internal Medicine Critical Care Medicine; Admitting Provider Internal Medicine; Emergency Provider Emergency Medicine; PCP Family Medicine; Visit Provider Internal Medicine
DX: U07.1 COVID-19 (principal); J12.82 Pneumonia due to coronavirus disease 2019; J96.01 Acute respiratory failure with hypoxia; E87.1 Hypo-osmolality and hyponatremia; R19.7 Diarrhea, unspecified; B37.0 Candidal stomatitis; I47.1 Supraventricular tachycardia; G47.00 Insomnia, unspecified; Z28.3 Underimmunization status; Z87.74 Personal history of (corrected) congenital malformations of heart and circulatory system; Z88.0 Allergy status to penicillin; Z88.1 Allergy status to other antibiotic agents
CPT/HCPCS: 36415; 71045; 71275; 80048; 80053; 80076; 80202; 82550; 83605; 83615; 83735; 84145; 84484; 85025; 85379; 85384; 86140; 87040; 87070; 87205; 87635; 93005; 94640; 94667; 94668; 94760; 94762; 96374; 99251; 99284; J7030; J7040; J7050; Q9967; A4216; G0463; J1940; J2405; U0003; U0005

== ENCOUNTER 2021-08-16 09:49 | Outpatient (CLI) | payer OTHER, SELFPAY ==
--- NOTE | 2021-08-17 07:14 | PFT ---
INTRODUCTION: The patient is a 50-year-old female that presents for pulmonary function studies secondary to a diagnosis of prior COVID-19. Respiratory therapy reported good patient effort. Bronchodilators were used during testing. INTERPRETATION: Forced expiration spirometry demonstrates no evidence of a large airways obstructive ventilatory defect. There was no significant response to aerosolized bronchodilators. Spirograms are of good quality and plateau normally. Body plethysmography was performed and revealed a decreased TLC to 4.74 L, 85% of predicted, indicative of a mild restrictive ventilatory impairment. Diffusing capacity by single breath CO is reduced to 61% of predicted. IMPRESSION: Mild restrictive ventilatory impairment with symmetric reduction in diffusing capacity.
== END 2021-08-16 23:59 | disposition short-term general hospital (02) ==
PROVIDERS: PCP Family Medicine; Referring Provider Nurse Practitioner Acute Care; Visit Provider Nurse Practitioner Acute Care
DX: U07.1 COVID-19 (principal)
CPT/HCPCS: 94060; 94726; 94729

== ENCOUNTER 2021-08-30 08:16 | Outpatient (CLI) | payer OTHER, SELFPAY ==
[2021-08-30 08:30] VITALS: PULSE 101; PULSE 74; PULSE 77; PULSE 92; PULSE 94; PULSE 97; PULSE 98; O2SAT 95; O2SAT 97; O2SAT 98
--- NOTE | 2021-08-30 13:14 | WT_ITS ---
PSN 6 Minute Walk Test 6 Minute Walk Test 6 Minute Walk Test: 6 Minute Walk Test PSN:6-Minute Walk Test Start: 08/30/21 08:46 Freq: Status: Active Protocol: [id number] Document 08/30/21 08:30 [facility] (Rec: 08/30/21 08:50 [facility] [id number]) 6 Minute Walk Test Date Performed 08/30/21 Time Performed 08:30 Height 5 ft 7 in Weight: 83.915 kg Weight in Pounds 185.[address]: Thanh Assistive device used: None Pre-test Oxygen Delivery Method Room Air Pulse Ox (%) 98 Pulse Rate (60-100 beats/min) 74 Dyspnea Ethel Scale (0-10) 0 Exertion Ethel Scale (6-20) 6 1st minute Oxygen Delivery Method Room Air Pulse Ox (%) 97 Pulse Rate (60-100 beats/min) 92 2nd minute Oxygen Delivery Method Room Air Pulse Ox (%) 95 Pulse Rate (60-100 beats/min) 97 3rd minute Oxygen Delivery Method Room Air Pulse Rate (60-100 beats/min) 98 Dyspnea Ethel Scale (0-10) 99 4th minute Oxygen Delivery Method Room Air Pulse Ox (%) 97 Pulse Rate (60-100 beats/min) 101 H 5th minute Oxygen Delivery Method Room Air Pulse Ox (%) 95 Pulse Rate (60-100 beats/min) 97 6th minute Oxygen Delivery Method Room Air Pulse Ox (%) 97 Pulse Rate (60-100 beats/min) 94 Dyspnea Ethel Scale (0-10) 0.5 Exertion Ethel Scale (6-20) 11 Post-test Oxygen Delivery Method Room Air Pulse Ox (%) 98 Pulse Rate (60-100 beats/min) 77 Full Laps Walked 20 Partial Lap, Number of Tiles Walked 23 Total Distance Walked (ft) 1203 Interpretation Interpretation: The patient ambulated 1203 feet over the course of 6 minutes beginning on room air without assistive devices. Pretesting oxygen saturation was noted to be 98% on room air. With ambulation, the anastacio oxygen saturation was 95%. There was no significant exertional oxygen desaturation. Recommendations Recommendations: There is no indication for the use of supplemental oxygen at this time.
== END 2021-08-30 23:59 | disposition home or self-care (01) ==
PROVIDERS: PCP Family Medicine; Referring Provider Nurse Practitioner Acute Care; Visit Provider Nurse Practitioner Acute Care
DX: U07.1 COVID-19 (principal)
CPT/HCPCS: 94618

== ENCOUNTER → 2022-06-27 | Outpatient (CLI) | payer OTHER, SELFPAY ==
--- NOTE | 2022-06-28 05:41 | PFTCOMP_ITS ---
COMPLETE PULMONARY FUNCTION TEST INTERPRETATION Brief HPI: Patient is a 51-year-old female, currently under the care of Dr. Cabral, who presents to [facility] for complete pulmonary function tests secondary to diagnosis of restrictive airways. Respiratory therapist reports good effort and reproducible results. Interpretation: Forced expiration spirometry shows no large airways obstructive ventilatory defect with an FEV1 of 85% predicted. There is no significant bronchodilator response by strict ATS criteria. Spirograms are of good quality and plateau normally. The respiratory flow volume loop shows a normal pattern. Lung volumes by body plethysmography show a normal total lung capacity at 5.53 L, 99% predicted. All other lung volumes are within normal limits. Diffusion capacity by carbon monoxide is normal at 104% predicted. The airway resistance is slightly elevated. Compared to previous pulmonary function tests from 08/16/2021, there is been significant improvements in TLC and DLCO by 17% and 70% respectively. Impression: Grossly normal pulmonary function test with significant improvement compared to July 2021.
== END | disposition home or self-care (01) ==
LOC: PSN 08:44
PROVIDERS: PCP Family Medicine; Referring Provider Family Medicine; Visit Provider Family Medicine
DX: J98.4 Other disorders of lung (principal)
CPT/HCPCS: 94060; 94726; 94729